=== PATIENT | male | born 1975 | race Caucasian/White ===

== ENCOUNTER 2017-06-14 15:30 | Emergency (ER) | payer SELFPAY ==
[2017-06-14 15:30] VITALS: BP 160/91; PULSE 84; RESP 20; TEMP 36.8; O2SAT 99; BMI 27.3
--- NOTE | 2017-06-14 15:38 | XR_ITS ---
XR chest 2V COMPARISON: PA and lateral chest 03/08/2012 HISTORY: Chest pain TECHNIQUE: PA and lateral chest FINDINGS: The lung plasencia are fairly well-expanded and appear clear of infiltrate. There is borderline cardio megaly without failure. Is no pleural fluid. IMPRESSION: Nonacute chest findings
[2017-06-14 15:49] LABS: Basophils % 0.4 % (0.1-2.0); Eosinophils # 0.1 K/mm3 (0.0-0.4); Eosinophils % 1.5 % (0.1-12.0); Hematocrit 49.5 % (42.0-52.0); Hemoglobin 16.6 g/dL (14.1-18.0); Lymphocytes # 1.6 K/mm3 (0.7-4.5); Lymphocytes % 22.2 K/mm3 (10-50); Mean Corpuscular HGB Conc 33.5 g/dL (31.8-35.4); Mean Corpuscular Hemoglobin 28.9 pg (27.0-31.2); Mean Corpuscular Volume 86.3 fl (80-94); Monocytes # 0.4 K/mm3 (0.1-1.0); Monocytes % 5.8 % (1.7-9.3); Neutrophils # 5.1 K/mm3 (1.8-7.8); Neutrophils % 70.1 % (37.0-80.0); Platelet Count 297 K/mm3 (142-424); Red Blood Count 5.73 M/mm3 (4.60-6.20); Red Cell Distribution Width 12.9 % (11.5-17.5); White Blood Count 7.2 K/mm3 (4.8-10.8)
--- NOTE | 2017-06-14 16:18 | HMH.EDCP ---
ED Disposition Clinical Impression: Chest pain Qualifiers: Chest pain type: other chest pain Qualified Code(s): R07.89 - Other chest pain Disposition: Home, Self-Care Condition on Discharge: Good Instructions: DI for Atypical Chest Pain Additional Instructions: Please follow-up with Dr. Fred Granado within the next 2 days for additional outpatient workup to include a stress test and an echocardiogram. Please document your resting blood pressure readings at home, and take those readings to the [facility]. Decrease the amount of sodium and fat in your diet. Referrals: Syd Granado MD [Staff Physician] - Time of Disposition: 17:24 - Critical Care Critical Care Time: No Attestation: On 06/14/17, the high probability of a clinically significant, sudden or life threatening deterioration of the following system(s) required my full and direct attention, intervention and personal management. The time I documented below is in addition to time spent performing reported procedures but includes the following listed in this critical care notation. Medical Decision Making - Medical Records Medical records reviewed: Yes: I reviewed the patient's medical records. - Pavan Inquiry Pt receiving controlled substance: No Vital Signs: 06/14/17 15:30 06/14/17 17:38 Temperature 98.2 F 98.0 F Temperature Source Oral Oral Pulse Rate 71 Pulse Rate [Right Brachial] 84 Respiratory Rate 20 18 Blood Pressure 161/102 Blood Pressure [Right Arm] 160/91 Blood Pressure Mean [Right Arm] 114 Blood Pressure Source Automatic Cuff Blood Pressure Source [Right Arm] Automatic Cuff Blood Pressure Position Sitting Blood Pressure Position [Right Arm] Supine 02 Sat by Pulse Oximetry 99 Oxygen Delivery Method Room Air Room Air - Lab Data Lab results reviewed: Yes: I reviewed the patient's lab results. Lab Results 06/14/17 15:35: WBC 7.2, RBC 5.73, Hgb 16.6, Hct 49.5, MCV 86.3, MCH 28.9, MCHC 33.5, RDW 12.9, Plt Count 297, MPV 8.0, Neut % (Auto) 70.1, Lymph % (Auto) 22.2, [place] % (Auto) 5.8, Eos % (Auto) 1.5, Baso % (Auto) 0.4, Neut # (Auto) 5.1, Lymph # (Auto) 1.6, [place] # (Auto) 0.4, Eos # (Auto) 0.1, Baso # (Auto) 0.0 06/14/17 15:35: Sodium 140, Potassium 3.5, Chloride 102, Carbon Dioxide 29, Anion Gap 12.5, BUN 8, Creatinine 0.96, Estimated Creat Clear 117, Estimated GFR 86, Est GFR ( Amer) 104, Glucose 106, Calcium 8.8, Total Bilirubin 0.4, AST 9 L, ALT 23, Alkaline Phosphatase 86, Total Creatine Kinase 136, CK-MB (CK-2) 0.8, CK-MB (CK-2) Rel Index 0.6, Troponin I < 0.02, Total Protein 8.2, Albumin 4.1, Globulin 4.1 H, Albumin/Globulin Ratio 1.0 L Result diagrams: 06/14/17 15:35 06/14/17 15:35 Orders (Tests/Meds): ED MEDICATIONS Discontinued Medications Generic Name Dose Route Start Last Admin Trade Name Freq PRN Reason Stop Dose Admin Aspirin 324 mg 06/14/17 15:40 06/14/17 15:42 Aspirin 81mg Chewable Tablet PO 06/14/17 15:41 324 mg ONCE ONE Administration ORDERS Category Date Time Status ECG Request by /Margie Stat Y 06/14/17 15:38 Ordered - Radiology Data #1 Image(s): Chest Image Reviewed: Yes I reviewed the patient's radiology results, Yes I reviewed the patient's radiology image, Yes I have reviewed radiologist's interpretation Preliminary Findings: Normal/NAD - ECG Data Tracing #1 I reviewed this ECG and interpreted as documented below: ECG normal with no acute: arrhythmias, ischemia, conduction abnormalities, chamber hypertrophy Chest Pain HPI - General Chief Complaint: Chest Pain Stated Complaint: CHEST PAIN Time Seen by Provider: 06/14/17 15:45 Mode of Arrival: Family Vehicle Source of Information: Patient Limitations: No Limitations Description of Symptoms (Recalled from ER Triage Doc. by RN): C/O MID CHEST PAIN WITH RADIATION TO LEFT SIDE OFF AND ON FOR COUPLE OF WEEKS BUT CONSTANT IN NATURE TODAY. UNABLE TO LIFT LEFT ARM ABOVE HEAD WITHOUT PAIN.
[2017-06-14 16:25] LABS: Alanine Aminotransferase 23 U/L (12-78); Albumin Level 4.1 gm/dL (3.4-5.0); Alkaline Phosphatase 86 U/L (46-116); Anion Gap 12.5 mEq/L (5-15); Aspartate Amino Transferase 9 U/L (15-37); Bilirubin,Total 0.4 mg/dL (0.2-1.0); Blood Urea Nitrogen 8 mg/dL (7-18); CKMB Relative Index 0.6 U/L (0-4.0); Calcium 8.8 mg/dL (8.5-10.1); Carbon Dioxide 29 mmol/L (21.0-32.0); Chloride 102 mmol/L (98-107); Creatine Kinase 136 U/L (39-308); Creatine Kinase MB 0.8 mg/ml (0.0-3.6); Creatinine Clearance Estimated 117 mL/min (0-300); Creatinine,Serum 0.96 mg/dL (0.70-1.30); Estimated Glomerular Filt Rate 86 ml/min (>60); GFR (African American) 104 ML/MIN (>60); Globulin 4.1 gm/dl (1.3-3.2); Glucose 106 mg/dL (74-106); Potassium 3.5 mmoL/L (3.5-5.1); Sodium 140 mmol/L (136-145); Total Protein,Serum 8.2 gm/dL (6.4-8.2); Troponin I < 0.02 ng/ml (0.00-0.06)
[2017-06-14 17:38] VITALS: BP 161/102; PULSE 71; RESP 18; TEMP 36.7; O2SAT 100
== END 2017-06-14 17:38 | disposition home or self-care (01) ==
PROVIDERS: Emergency Provider Emergency Medicine
DX: R07.89 Other chest pain (principal); Z88.0 Allergy status to penicillin
CPT/HCPCS: 71046; 80053; 82550; 82553; 84484; 85025; 93005; 99283

== ENCOUNTER 2020-06-04 19:42 | Emergency (ER) | payer BC, SELFPAY ==
[2020-06-04 19:52] VITALS: BP 206/118; PULSE 122; RESP 22; TEMP 37.7; O2SAT 96; BMI 32.8
--- NOTE | 2020-06-04 19:55 | ECG_ITS ---
APPROVED REPORT Exam: Resting ECG HR:115 bpm ECG Measurements Heart Rate 115 AXES FL 190 P 52 QRSd 96 QRS 44 QT 304 T 30 QTc 420 Conclusion Sinus tachycardia Otherwise normal ECG Electronically signed by : Jose L Oneal, 06/05/2020 07:02:04
--- NOTE | 2020-06-04 20:06 | XR_ITS ---
PROCEDURE: XR CHEST 2V CLINICAL HISTORY: SOA Shortness of air COMPARISON: CR CXR2V XR chest 2V from 06/14/2017 FINDINGS: The cardiomediastinal silhouette and pulmonary vascularity are within normal limits. The lungs are clear without infiltrates, suspicious nodules, or pleural effusions. Limited inspiration. Slightly elevated right hemidiaphragm. Minimal bibasilar. Old ununited fracture of the left humeral neck IMPRESSION: Low lung volumes with mild bibasilar atelectasis. Dictated by: Henri Alexandra MD 06/05/2020 05:32 Henri Alexandra MD in [facility] 06/05/2020 05:32
--- NOTE | 2020-06-04 20:16 | HMH.EDSOB ---
ED Disposition Clinical Impression: Febrile illness, acute, SIRS (systemic inflammatory response syndrome) Disposition: Home, Self-Care Condition on Discharge: Good Instructions: DI for Shortness of Breath Additional Instructions: fluids and use meds and see pcp for follow up Prescriptions: levoFLOXacin [Levaquin 500mg tab] 500 mg PO DAILY #7 tab Transmission Status: Pending to [facility] #[id number] Referrals: PCP,No [Primary Care Provider] - - Critical Care Critical Care Time: No Attestation: On 06/04/20, the high probability of a clinically significant, sudden or life threatening deterioration of the following system(s) required my full and direct attention, intervention and personal management. The time I documented below is in addition to time spent performing reported procedures but includes the following listed in this critical care notation. Medical Decision Making - Medical Records Medical records reviewed: Yes: I reviewed the patient's medical records. - Pavan Inquiry Pt receiving controlled substance: No Vital Signs: 06/04/20 19:52 06/04/20 22:18 Temperature 99.9 F H 99.4 F Temperature Source Oral Oral Pulse Rate [Right] 122 H 99 H Respiratory Rate 22 16 Blood Pressure [Right Arm] 206/118 H 148/99 H Blood Pressure Mean [Right Arm] 147 115 Blood Pressure Source [Right Arm] Automatic Cuff Blood Pressure Position [Right Arm] Supine 02 Sat by Pulse Oximetry 96 99 Oxygen Delivery Method Room Air Room Air - Lab Data Lab results reviewed: Yes: I reviewed the patient's lab results. Lab Results 06/04/20 20:05: WBC 10.8, RBC 5.63, Hgb 16.2, Hct 49.2, MCV 87.4, MCH 28.8, MCHC 33.0, RDW 13.3, Plt Count 228, MPV 7.5, Neut % (Auto) 93.3 H, Lymph % (Auto) 2.5 L, [place] % (Auto) 3.4, Eos % (Auto) 0.7, Baso % (Auto) 0.2, Neut # (Auto) 10.1 H, Lymph # (Auto) 0.3 L, [place] # (Auto) 0.4, Eos # (Auto) 0.1, Baso # (Auto) 0.0, Total Counted 100, Neutrophils % (Manual) 91 H, Lymphocytes % (Manual) 4 L, Monocytes % (Manual) 5, Platelet Estimate Normal, RBC Morphology Normal, ESR 8 06/04/20 20:05: Sodium 137, Potassium 3.8, Chloride 101, Carbon Dioxide 27, Anion Gap 12.8, BUN 14, Creatinine 0.90, Estimated Creat Clear 141, Estimated GFR 92, Est GFR ( Amer) 111, Glucose 147 H, Calcium 9.4, Total Bilirubin 1.0, AST 25, ALT 26, Alkaline Phosphatase 106, C-Reactive Protein 50.5 H, Total Protein 8.8 H, Albumin 4.7, Globulin 4.1 H, Albumin/Globulin Ratio 1.1 06/04/20 20:05: Lactate 1.4 06/04/20 20:05: SARS-CoV-2 IgG Ab (Rapid) Negative, SARS-CoV-2 IgM Ab (Rapid) Negative 06/04/20 20:05: Procalcitonin 0.570 06/04/20 20:20: Chlamy pneumoniae PCR Not detected, Adenovirus (PCR) Not detected, B. pertussis DNA (PCR) Not detected, Coronavirus OC43 (PCR) Not detected, Coronavirus HKU1 (PCR) Not detected, Coronavirus 229E (PCR) Not detected, SARS-CoV-2 (PCR) Not detected, Coronavirus NL63 (PCR) Not detected, Human Metapneumovir PCR Not detected, Influenza A (H1) PCR Not detected, Influ A (H1N1/09) PCR Not detected, Influenza A (H3) PCR Not detected, Influenza Type A (PCR) Not detected, Influenza Type B (PCR) Not detected, M. pneumoniae (PCR) Not detected, Parainfluenza 1 (PCR) Not detected, Parainfluenza 2 (PCR) Not detected, Parainfluenza 3 (PCR) Not detected, Parainfluenza 4 (PCR) Not detected, RSV (PCR) Not detected, Entero/Rhino (PCR) Not detected Result diagrams: 06/04/20 20:05 06/04/20 20:05 Orders (Tests/Meds): ED MEDICATIONS Generic Name Dose Route Start Last Admin Trade Name Freq PRN Reason Stop Dose Admin Sodium Chloride 1,000 mls @ 999 mls/hr 06/04/20 20:15 06/04/20 20:09 Sod Chlor 0.9% 1000ml Bag IV 06/04/20 21:15 999 mls/hr .Q1H1M LIZ Administration Ceftriaxone Sodium 1 gm/ 50 mls @ 100 mls/hr 06/04/20 22:30 06/04/20 22:29 Sodium Chloride IV 06/18/20 22:29 100 mls/hr Q24H LIZ Administration Protocol Discontinued Medications Generic Name Dose Route Start Last Admin T
--- NOTE | 2020-06-04 20:17 | CT_ITS ---
PROCEDURE: CT ANGIO CHEST CLINCIAL INDICATION: SOA pain w/ inspiration Shortness of breath and chest pain COMPARISON: No exams were available for comparison TECHNIQUE: IV Contrast: 70ML Isovue 370 Axial images obtained with sagittal and coronal reformats. All CT scans at the facility use one or more dose reduction, viz: automated exposure control, ma/kV adjustment per patient size (including targeted exams where dose is matched to indication, i.e. head), or iterative reconstruction technique. FINDINGS: HEART AND MEDIASTINAL STRUCTURES: No evidence of pulmonary embolus, aortic aneurysm, or aortic dissection. LUNGS AND PLEURAL SPACES: Minimal atelectatic change in the lingula. Calcified granuloma right lower lobe. Calcified nodes in the right hilum. BONY STRUCTURES: No acute bony abnormalities apparent. UPPER ABDOMEN: Borderline splenomegaly ADDITIONAL FINDINGS: No other significant abnormalities. IMPRESSION: No acute finding Dictated by: Henri Alexandra MD 06/05/2020 06:35 Henri Alexandra MD in [place] 06/05/2020 06:35
[2020-06-04 20:18] LABS: Chloride 101 mmol/L (98-107)
[2020-06-04 20:19] LABS: Potassium 3.8 mmoL/L (3.5-5.1); Sodium 137 mmol/L (136-145)
[2020-06-04 20:20] LABS: Basophils % 0.2 % (0.1-2.0); Eosinophils # 0.1 K/mm3 (0.0-0.4); Eosinophils % 0.7 % (0.1-12.0); Hematocrit 49.2 % (42.0-52.0); Hemoglobin 16.2 g/dL (14.1-18.0); Lymphocytes # 0.3 K/mm3 (0.7-4.5); Lymphocytes % 2.5 % (10-50); Mean Corpuscular Hemoglobin 28.8 pg (27.0-31.2); Mean Corpuscular Volume 87.4 fl (80-94); Mean Platelet Volume 7.5 fl (7.4-10.4); Monocytes # 0.4 K/mm3 (0.1-1.0); Monocytes % 3.4 % (1.7-9.3); Neutrophils # 10.1 K/mm3 (1.8-7.8); Neutrophils % 93.3 % (37.0-80.0); Platelet Count 228 K/mm3 (142-424); Red Blood Count 5.63 M/mm3 (4.60-6.20); Red Cell Distribution Width 13.3 % (11.5-17.5); White Blood Count 10.8 K/mm3 (4.8-10.8)
[2020-06-04 20:21] LABS: Alanine Aminotransferase 26 U/L (12-78); Anion Gap 12.8 mEq/L (5-15); Aspartate Amino Transferase 25 U/L (17-59); Blood Urea Nitrogen 14 mg/dl (9-20); Carbon Dioxide 27 mmol/L (22.0-30.0); Creatinine Clearance Estimated 141 mL/min (50-200); Estimated Glomerular Filt Rate 92 ml/min (>60); GFR (African American) 111 ML/MIN (>60)
[2020-06-04 20:22] LABS: Albumin Level 4.7 g/dl (3.5-5.0); Albumin/Globulin Ratio 1.1 (1.1-1.8); Alkaline Phosphatase 106 U/L (38-126); Calcium 9.4 mg/dl (8.4-10.2); Globulin 4.1 g/dL (1.3-3.2); Glucose 147 mg/dl (74-100); MANUAL DIFFERENTIAL MANUAL DIFFERENTIAL (MANUAL DIFF); Total Protein,Serum 8.8 g/dl (6.3-8.2)
[2020-06-04 20:24] LABS: Adenovirus,PCR Not Detected (NotDetected); Coronavirus 229E Not Detected (NotDetected); Coronavirus NL63 Not Detected (NotDetected); Coronavirus OC43 Not Detected (NotDetected); Coronovirus HKU1,PCR Not Detected (NotDetected); Human Metapneumovirus Not Detected (NotDetected); Influenza A, PCR Not Detected (NotDetected); Influenza AH1, 2009 Not Detected (NotDetected); Influenza AH1, PCR Not Detected (NotDetected); Influenza AH3,PCR Not Detected (NotDetected); Influenza B, PCR Not Detected (NotDetected); Parainfluenza 1, PCR Not Detected (NotDetected); Parainfluenza 2, PCR Not Detected (NotDetected); Rhinovirus/Enterovirus Not Detected (NotDetected)
[2020-06-04 20:25] LABS: Bordetella Pertussis Not Detected (NotDetected); Chlamydophila Pneumoniae, PCR Not Detected (NotDetected); Coronavirus 19, PCR Not Detected (NotDetected); Mycoplasma Pneumoniae, PCR Not Detected (NotDetected); Parainfluenza 3, PCR Not Detected (NotDetected); Parainfluenza 4, PCR Not Detected (NotDetected); Respiratory Syncytial Virus Not Detected (NotDetected)
[2020-06-04 20:26] LABS: Lactic Acid 1.4 mmol/L (0.7-2.1)
[2020-06-04 20:27] LABS: C-Reactive Protein 50.5 mg/L (0-4)
[2020-06-04 20:28] LABS: Lymphocytes % 4 % (10-50); Monocytes % 5 % (2-9); Neutrophils % 91 % (42-76); Platelet Estimate Normal; RBC Morphology Normal; Total Cells Counted 100
[2020-06-04 20:56] LABS: Coronavirus 19 IgG Antibody Negative (Negative); Coronavirus 19 IgM Antibody Negative (Negative)
[2020-06-04 21:13] LABS: Erythrocyte Sedimentation Rate 8 mm/hr (0-15)
[2020-06-04 22:18] VITALS: BP 148/99; PULSE 99; RESP 16; TEMP 37.4; O2SAT 99
[2020-06-04 23:38] VITALS: BP 144/93; PULSE 102; RESP 16; TEMP 37.4; O2SAT 95
== END 2020-06-04 23:41 | disposition home or self-care (01) ==
PROVIDERS: Emergency Medicine; Emergency Provider Emergency Medicine
DX: Z20.822 Contact with and (suspected) exposure to COVID-19 (principal); R50.9 Fever, unspecified; Z88.0 Allergy status to penicillin; R65.10 Systemic inflammatory response syndrome (SIRS) of non-infectious origin without acute organ dysfunction
CPT/HCPCS: 71046; 71275; 80053; 83605; 84145; 85007; 85025; 85651; 86140; 86328; 87040; 87581; 87633; 87798; 93005; 96365; 96367; 96375; 99283; J2405; Q9967

== ENCOUNTER → 2020-12-16 17:15 | Outpatient (CLI) | payer SELFPAY | PROVIDERS: Visit Provider Nurse Practitioner | DX: Z20.822 Contact with and (suspected) exposure to COVID-19 (principal) | CPT/HCPCS: C9803; U0003; U0005 ==

== ENCOUNTER → 2021-02-25 17:25 | Outpatient (CLI) | payer OTHER, SELFPAY ==
[2021-02-25 18:41] LABS: Basophils % 0.6 % (0.1-2.0); Eosinophils # 0.1 K/mm3 (0.0-0.4); Eosinophils % 1.3 % (0.1-12.0); Hematocrit 46.8 % (42.0-52.0); Hemoglobin 16.4 g/dL (14.1-18.0); Lymphocytes # 1.4 K/mm3 (0.7-4.5); Lymphocytes % 22.5 % (10-50); Mean Corpuscular Hemoglobin 29.3 pg (27.0-31.2); Mean Corpuscular Volume 83.8 fl (80-94); Mean Platelet Volume 8.3 fl (7.4-10.4); Monocytes # 0.3 K/mm3 (0.1-1.0); Monocytes % 5.6 % (1.7-9.3); Neutrophils # 4.3 K/mm3 (1.8-7.8); Platelet Count 324 K/mm3 (142-424); Red Blood Count 5.58 M/mm3 (4.60-6.20); Red Cell Distribution Width 13.2 % (11.5-17.5); White Blood Count 6.1 K/mm3 (4.8-10.8)
[2021-02-25 19:23] LABS: Chloride 101 mmol/L (98-107)
[2021-02-25 19:24] LABS: Potassium 4.1 mmoL/L (3.5-5.1); Sodium 140 mmol/L (136-145)
[2021-02-25 19:26] LABS: Alanine Aminotransferase 10 U/L (12-78); Anion Gap 15.1 mEq/L (5-15); Aspartate Amino Transferase 23 U/L (17-59); Bilirubin,Total 0.3 mg/dl (0.2-1.3); Blood Urea Nitrogen 14 mg/dl (9-20); Carbon Dioxide 28 mmol/L (22.0-30.0); Estimated Glomerular Filt Rate 91 ml/min (>60); GFR (African American) 110 ML/MIN (>60)
[2021-02-25 19:27] LABS: Albumin Level 4.7 g/dl (3.5-5.0); Albumin/Globulin Ratio 1.6 (1.1-1.8); Alkaline Phosphatase 88 U/L (38-126); Calcium 10.1 mg/dl (8.4-10.2); Chol/HDL Ratio 5.5 (1-3.5); Cholesterol 203 mg/dl (140-200); Globulin 2.9 g/dL (1.3-3.2); Glucose 111 mg/dl (74-100); HDL Cholesterol 37 mg/dl (40-60); Total Protein,Serum 7.6 g/dl (6.3-8.2); Triglycerides 184 mg/dl (30-150); VLDL Cholesterol 37 mg/dL (0-40)
[2021-02-25 19:38] LABS: Direct LDL Cholesterol 136.11 mg/dL (100-129)
[2021-02-25 19:43] LABS: 25-OH Vitamin D, Total 39.8 ng/mL (30-100)
[2021-02-25 19:58] LABS: Thyroid Stimulating Hormone 1.84 uIU/mL (0.465-4.68)
[2021-02-25 21:10] LABS: Vitamin B12 383 pg/mL (239-931)
[2021-02-27 17:07] LABS: Hemoglobin A1C 5.2 % (4.0-6.0)
== END ==
PROVIDERS: Internal Medicine Adolescent Medicine; Visit Provider Nurse Practitioner Family
DX: Z00.00 Encounter for general adult medical examination without abnormal findings (principal); I10 Essential (primary) hypertension; R53.83 Other fatigue; R73.9 Hyperglycemia, unspecified
CPT/HCPCS: 36415; 80053; 80061; 82306; 82607; 83036; 84443; 85025

== ENCOUNTER → 2021-07-26 09:42 | Outpatient (CLI) | payer OTHER, SELFPAY ==
[2021-07-26 11:19] LABS: Alanine Aminotransferase 16 U/L (12-78); Albumin Level 4.4 g/dl (3.5-5.0); Albumin/Globulin Ratio 1.6 (1.1-1.8); Alkaline Phosphatase 77 U/L (38-126); Anion Gap 11.1 mEq/L (5-15); Aspartate Amino Transferase 18 U/L (17-59); Bilirubin,Total 0.4 mg/dl (0.2-1.3); Blood Urea Nitrogen 13 mg/dl (9-20); Calcium 9.6 mg/dl (8.4-10.2); Carbon Dioxide 31 mmol/L (22.0-30.0); Chloride 101 mmol/L (98-107); Chol/HDL Ratio 4.9 (1-3.5); Cholesterol 188 mg/dl (140-200); Estimated Glomerular Filt Rate 91 ml/min (>60); GFR (African American) 110 ML/MIN (>60); Globulin 2.7 g/dL (1.3-3.2); Glucose 89 mg/dl (74-100); HDL Cholesterol 38 mg/dl (40-60); Potassium 4.1 mmoL/L (3.5-5.1); Sodium 139 mmol/L (136-145); Total Protein,Serum 7.1 g/dl (6.3-8.2); Triglycerides 120 mg/dl (30-150); VLDL Cholesterol 24 mg/dL (0-40)
[2021-07-26 11:30] LABS: Direct LDL Cholesterol 114.42 mg/dL (100-129)
== END ==
PROVIDERS: Visit Provider Nurse Practitioner Family
DX: Z00.00 Encounter for general adult medical examination without abnormal findings (principal); I10 Essential (primary) hypertension
CPT/HCPCS: 36415; 80053; 80061

== ENCOUNTER 2022-09-17 16:38 | Emergency (ER) | payer OTHER, SELFPAY ==
[2022-09-17 16:45] VITALS: BP 170/117; PULSE 72; RESP 19; TEMP 36.8; O2SAT 99; BMI 28.4
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
[2022-09-17 17:57] VITALS: BP 170/117; PULSE 72; RESP 19; TEMP 36.8; O2SAT 99
== END 2022-09-17 17:58 | disposition home or self-care (01) ==
PROVIDERS: Emergency Provider Nurse Practitioner Family; PCP Nurse Practitioner Family
DX: L03.115 Cellulitis of right lower limb (principal); S80.11XA Contusion of right lower leg, initial encounter; W20.8XXA Other cause of strike by thrown, projected or falling object, initial encounter
CPT/HCPCS: 73590; 99204; 99212; G0463

== ENCOUNTER 2024-09-03 18:26 | Observation (INO) | payer BC, SELFPAY ==
[2024-09-03] VITALS (34 sets, daily range): BP systolic 162–246; BP diastolic 93–141; PULSE 60–122; RESP 0–27; TEMP 36.6–37; O2SAT 93–100; BMI 29.6; BMI 30.4
--- NOTE | 2024-09-03 18:41 | PC.NURSE ---
Manual BP 240/120 at this time.
--- NOTE | 2024-09-03 18:42 | CT_ITS ---
PROCEDURE INFORMATION: Exam: CT Head Without Contrast Exam date and time: 09/03/2024 7:05 PM Age: 48 years old Clinical indication: Other: Systolic 250 headache TECHNIQUE: Imaging protocol: Computed tomography of the head without contrast. Radiation optimization: All CT scans at this facility use at least one of these dose optimization techniques: automated exposure control; mA and/or kV adjustment per patient size (includes targeted exams where dose is matched to clinical indication); or iterative reconstruction. COMPARISON: CT - [facility] CT cervical spine wo con 10/02/2017 12:38 PM FINDINGS: Brain: No hemorrhage. Unremarkable white matter. No mass effect. Cerebral ventricles: No ventriculomegaly. Paranasal sinuses: Visualized sinuses are unremarkable. No fluid levels. Mastoid air cells: Visualized mastoid air cells are well aerated. Bones: Unremarkable. No acute fracture. Soft tissues: Unremarkable. IMPRESSION: No acute intracranial abnormality.
--- NOTE | 2024-09-03 18:44 | ED_ITS ---
Discharge Plan Disposition Patient Disposition: Admitted Clinical Impressions Clinical Impression: Hypertensive emergency, Intermittent chest pain Discharge ED Provider: Gideon Brito General Adult HPI General Chief complaint: Recheck/Abnormal Lab/Rx Stated complaint: High blood pressure,headache Time Seen by Provider: 09/03/24 18:32 Mode of Arrival: Ambulatory Source of Information: Patient and Significant Other Description of Symptoms (Recalled from ER Triage Doc. by RN): PT presents to the ED for evaluation of HTN. PT states he checked his BP at [facility] 216/142. PT is non compliant with medication. PT stated he has had a headache and chest pains. History of Present Illness HPI narrative: Patient is a 48-year-old male with past medical history of hypertension that he is not taking his medications as prescribed who presents emergency department for evaluation of elevated blood pressure. He took his blood pressure at [facility] where it was elevated with systolic greater than 200. He has a bifrontal headache. No trauma. He has had intermittent chest pain throughout the course of the week but does not have any chest pain currently. No shortness of breath reported. No other acute complaints at this time. Please note that above description of symptoms, in this electronic medical record under categorization of recalled from ER triage doctor by RN are reflective of an initial nursing assessment, however, is not reflective of my full history and physical exam that was personally taken and clarified. Consequentially, this preceding description of symptoms, which may include the patient's categorized chief complaint in the EMR, do not reflect my personal clinical impression, and the ultimate description of history of present illness and patient stated complaints should be deferred to this section of the note. Unless stated otherwise or congruent with this section of the note, additional signs, symptoms, or incongruence should be interpreted as inaccurate with my clinical impression. Related Data Home Medications ?Medication ?Instructions ?Recorded ?Confirmed losartan 25 mg tablet 25 mg PO DAILY Hypertension 09/17/22 09/17/22 Previous Rx's ?Medication ?Instructions ?Recorded cephalexin 500 mg capsule 500 mg PO QID #40 caps 09/17 mupirocin 2 % topical ointment 1 applic topical TID 7 days #15 09/17/22 grams Allergies Allergy/AdvReac Type Severity Reaction Status Date / Time amoxicillin Allergy Verified 09/27/17 09:13 Penicillins Allergy Verified 09/27/17 09:13 [facility] Disclaimer: The information contained in this section may have been updated after the patient was seen, as this information can be updated by other users. Medical History Hypertension Surgical History History of shoulder surgery Social History Smoking Status: Never smoker alcohol intake: never current occupational status: employed Travel in the last 8 weeks?: None caffeine: Yes Have you lived/traveled outside US in past 30 days?: No Contact w/someone who lives/traveled outside US past 30 days?: No Exposure to someone with infectious disease in past 14 days?: No Do you have a fever (greater than 100.4 F or 38 C)?: No Have you tested positive for COVID-19?: No Exposed to someone with COVID-19 in past 14 days?: No Do you have a sore throat?: No Do you have a cough?: No Do you have any weakness?: No Do you have any diarrhea?: No Are you experiencing any unusual bleeding?: No Do you have any muscle aches/pain?: No Do you have any abdominal pain?: No Are you experiencing loss of taste or smell?: No Other Medical History Have you received the Flu Vaccine for this season: No Have you received the Pneumonia Vaccine: No ROS Obtained: Yes Systems reviewed as appropriate & no additional complaints except as documented Physical Exam General General appearance: alert and in no apparent distress Head Head exam: atraumatic and normocephalic Eye Eye exam: Present PERRL and EOMI ENT ENT exam: Present mucous membranes moist Neck Neck exam: Present normal inspection Chest Chest inspection: Present normal inspection and symmetric chest wall rise Respiratory Respiratory exam: Present normal lung sounds bilaterally; Absent respiratory distress Cardiovascular Cardiovascular exam: Present normal rhythm and tachycardia Abdominal Exam Abdominal exam: Present soft; Absent tenderness Extremities Exam Extremities exam: Present normal inspection Neurological Exam Neurological exam: Present alert and CN II-XII intact; Absent motor sensory deficit Psychiatric Psychiatric exam: Present normal affect Skin Skin exam: Present warm and dry Medical Decision Making Medical Records Screening: Per USPSTF and CDC recommendations, given the prevalence of disease in our region, it is our hospital?s policy to screen for HIV and viral Hepatitis for all patients aged 18 and over and those with ongoing risk factors. [place] Inquiry Pt receiving controlled substance: No Vital Signs: 09/03/24 18:29 09/03/24 18:35 09/03/24 19:00 Temperature 98.2 F Temperature Source Oral Pulse Rate 106 H Pulse Rate [Right] 100 H 115 H Respiratory Rate 16 14 Blood Pressure 195/116 H Blood Pressure [Right Arm] 246/141 H 207/134 H Blood Pressure Mean Blood Pressure Mean [Right Arm] 176 158 Blood Pressure Source [Right Arm] Automatic Cuff Blood Pressure Position 02 Sat by Pulse Oximetry 100 96 95 Oxygen Delivery Method Room Air Room Air 09/03/24 19:09 09/03/24 19:13 09/03/24 19:15 Temperature Temperature Source Pulse Rate 108 H 89 111 H Pulse Rate [Right] Respiratory Rate 0 L Blood Pressure 228/132 H 207/134 H 204/123 H Blood Pressure [Right Arm] Blood Pressure Mean Blood Pressure Mean [Right Arm] Blood Pressure Source [Right Arm] Blood Pressure Position 02 Sat by Pulse Oximetry 96 96 97 Oxygen Delivery Method 09/03/24 19:20 09/03/24 19:27 09/03/24 19:27 Temperature Temperature Source Pulse Rate 122 H 120 H 118 H Pulse Rate [Right] Respiratory Rate 16 Blood Pressure 214/135 H 199/115 H 199/115 H Blood Pressure [Right Arm] Blood Pressure Mean Blood Pressure Mean [Right Arm] Blood Pressure Source [Right Arm] Blood Pressure Position Sitting 02 Sat by Pulse Oximetry 96 95 95 Oxygen Delivery Method Room Air 09/03/24 19:30 09/03/24 19:35 09/03/24 19:40 Temperature Temperature Source Pulse Rate 114 H 60 Pulse Rate [Right] Respiratory Rate Blood Pressure 209/116 H 184/111 H 183/94 H Blood Pressure [Right Arm] Blood Pressure Mean 135 Blood Pressure Mean [Right Arm] Blood Pressure Source [Right Arm] Blood Pressure Position 02 Sat by Pulse Oximetry 95 95 Oxygen Delivery Method 09/03/24 19:45 09/03/24 19:50 09/03/24 19:51 Temperature Temperature Source Pulse Rate 115 H 112 H 115 H Pulse Rate [Right] Respiratory Rate 16 Blood Pressure 187/116 H 189/112 H 189/112 H Blood Pressure [Right Arm] Blood Pressure Mean Blood Pressure Mean [Right Arm] Blood Pressure Source [Right Arm] Blood Pressure Position Sitting 02 Sat by Pulse Oximetry 94 L 94 L 94 L Oxygen Delivery Method Room Air 09/03/24 19:55 09/03/24 20:00 09/03/24 20:05 Temperature Temperature Source Pulse Rate 114 H 114 H 110 H Pulse Rate [Right] Respiratory Rate Blood Pressure 179/111 H 186/114 H 186/114 H Blood Pressure [Right Arm] Blood Pressure Mean Blood Pressure Mean [Right Arm] Blood Pressure Source [Right Arm] Blood Pressure Position 02 Sat by Pulse Oximetry 93 L 94 L 94 L Oxygen Delivery Method 09/03/24 20:10 09/03/24 20:15 09/03/24 20:20 Temperature Temperature Source Pulse Rate 105 H Pulse Rate [Right] Respiratory Rate 23 Blood Pressure 184/110 H 197/121 H 185/118 H Blood Pressure [Right Arm] Blood Pressure Mean 140 Blood Pressure Mean [Right Arm] Blood Pressure Source [Right Arm] Blood Pressure Position 02 Sat by Pulse Oximetry 94 L Oxygen Delivery Method 09/03/24 20:25 09/03/24 20:30 09/03/24 20:56 Temperature Temperature Source Pulse Rate 111 H 105 H 103 H Pulse Rate [Right] Respiratory Rate 27 H Blood Pressure 175/122 H 185/114 H 212/121 H Blood Pressure [Right Arm] Blood Pressure Mean Blood Pressure Mean [Right Arm] Blood Pressure Source [Right Arm] Blood Pressure Position 02 Sat by Pulse Oximetry 94 L 94 L 96 Oxygen Delivery Method 09/03/24 21:00 09/03/24 21:05 Temperature Temperature Source Pulse Rate 101 H 103 H Pulse Rate [Right] Respiratory Rate Blood Pressure 198/117 H 177/112 H Blood Pressure [Right Arm] Blood Pressure Mean Blood Pressure Mean [Right Arm] Blood Pressure Source [Right Arm] Blood Pressure Position 02 Sat by Pulse Oximetry 95 95 Oxygen Delivery Method Lab Data Lab Results 09/03/24 18:46: WBC 8.8, RBC 5.62, Hgb 16.6, Hct 46.7, MCV 83.1, MCH 29.5, MCHC 35.5 H, RDW 13.2, Plt Count 320, MPV 10.0, Neut % (Auto) 68.2, Lymph % (Auto) 22.2, [place] % (Auto) 6.2, Eos % (Auto) 2.5, Baso % (Auto) 0.7, Neut # (Auto) 6.0, Lymph # (Auto) 1.9, [place] # (Auto) 0.5, Eos # (Auto) 0.2, Baso # (Auto) 0.1, D- Dimer 1.14 H, Sodium 138, Potassium 4.5, Chloride 104, Carbon Dioxide 25, Anion Gap 13.5, BUN 13, Creatinine 1.00, Estimated Creat Clear 113, Estimated GFR 80, Est GFR ( Amer) 97, Glucose 118 H, Calcium 9.0, Total Bilirubin 1.1, AST 37, ALT 28, Alkaline Phosphatase 77, Troponin I 0.02, Total Protein 8.4 H, Albumin 4.6, Globulin 3.8 H, Albumin/Globulin Ratio 1.2 09/03/24 19:33: Urine Color Yellow, Urine Appearance Clear, Urine pH 7.0, Ur Specific [place] 1.015, Urine Protein Negative, Urine Glucose (UA) Negative, Urine Ketones Negative, Urine Blood Negative, Urine Nitrate Negative, Urine Bilirubin Negative, Urine Urobilinogen 1.0, Ur Leukocyte Esterase Negative, Urine RBC None, Urine WBC None, Ur Squamous Epith Cells None, Urine Bacteria None 09/03/24 18:46 09/03/24 18:46 Orders (Tests/Meds): ED MEDICATIONS Generic Name Dose Route Start Last Admin Trade Name Freq PRN Reason Stop Dose Admin Nicardipine HCl 25 mg/ Sodium 250 mls @ 50 mls/hr 09/03/24 18:40 09/03/24 19:46 Chloride IV 10/03/24 18:39 5 mg/hr .Q5H LIZ 50 mls/hr Protocol Infusion 5 MG/HR Iopamidol 80 ml 09/03/24 20:50 09/03/24 20:51 Iopamidol-370 (76%);100ml Bottle IV 09/03/24 20:51 80 ml ONCE ONE Administration Irbesartan 75 mg 09/04/24 09:00 Irbesartan 75mg Tablet PO 10/04/24 08:59 ONCE LIZ Nifedipine 30 mg 09/04/24 09:00 Nifedipine Xl 30mg Tablet PO 10/04/24 08:59 DAILY LIZ Sodium Chloride 50 ml 09/03/24 20:50 09/03/24 20:51 0.9 % Sodium Chloride 50 Ml Vial IV 09/03/24 20:51 50 ml ONCE ONE Administration Sodium Chloride 10 ml 09/03/24 20:50 09/03/24 20:51 Sodium Chloride 0.9% 10ml Syr (Rad Only) IV 09/03/24 20:51 10 ml ONCE ONE Administration Discontinued Medications Generic Name Dose Route Start Last Admin Trade Name Freq PRN Reason Stop Dose Admin Acetaminophen 1,000 mg 09/03/24 18:42 09/03/24 19:19 Acetaminophen 1,000mg/100ml Vial IV 09/03/24 18:43 1,000 mg ONCE ONE Administration ORDERS Category Date Time Status CT angio abdomen pelvis Stat Cat Scan 09/03/24 20:[address] angio chest - dissection Stat Cat Scan 09/03/24 19:[address] head/brain wo con Stat Cat Scan 09/03/24 18:42 Completed Cardiology Consult [Consult to Cardiology] [CONS] Cons 09/03/24 20:23 Active Routine CBC w/Auto Diff [Complete Blood Count Auto Diff] AMLAB Lab 09/04/24 06:00 Ordered CBC w/Auto Diff [Complete Blood Count Auto Diff] AMLAB Lab 09/05/24 06:00 Ordered CBC w/Auto Diff [Complete Blood Count Auto Diff] AMLAB Lab 09/06/24 06:00 Ordered CBC w/Auto Diff [Complete Blood Count Auto Diff] Stat Lab 09/03/24 18:46 Completed CMP [Comprehensive Metabolic Panel] AMLAB Lab 09/04/24 06:00 Ordered CMP [Comprehensive Metabolic Panel] AMLAB Lab 09/05/24 06:00 Ordered CMP [Comprehensive Metabolic Panel] AMLAB Lab 09/06/24 06:00 Ordered CMP [Comprehensive Metabolic Panel] Stat Lab 09/03/24 18:46 Completed D-Dimer Stat Lab 09/03/24 18:46 Completed MAG [Magnesium] AMLAB Lab 09/04/24 06:00 Ordered PHOS [Phosphorous] AMLAB Lab 09/04/24 06:00 Ordered PHOS [Phosphorous] AMLAB Lab 09/05/24 06:00 Ordered PHOS [Phosphorous] AMLAB Lab 09/06/24 06:00 Ordered PT INR [Prothrombin Time INR] AMLAB Lab 09/04/24 06:00 Ordered Trop I [Troponin I] Stat Lab 09/03/24 18:46 Completed Troponin I Q3H Lab 09/03/24 21:45 Ordered Troponin I Q3H Lab 09/04/24 00:45 Ordered UA [Urinalysis and Microscopic] Stat Lab 09/03/24 19:33 Completed CA echo doppler complete Routine Y 09/03/24 20:21 Ordered ECG Data Tracing #1: Independently interpreted by me rate is 109, rhythm is regular, axis is normal, no ST elevation in anatomical contiguous leads, QTc 394. Medical Decision Narrative: In summary patient is a 48-year-old male past medical history described above presents emergency department for evaluation of hypertension. Patient has severe elevated hypertension upon arrival systolic 246, subsequent systolic 251. Patient has a bifrontal headache and a nonfocal neurologic exam. He has a history of chest pain strep the course of the week but does not have any currently. Given this Cardene drip will be initiated given severity of hypertension workup screening for secondary endorgan damage as well as intracranial hemorrhage will be conducted with hematologic labs EKG troponin noncontrasted CT scan of the head. Initial inventions include IV Tylenol. D- dimer will be obtained for low risk aortic dissection and pulmonary embolism given that he is not have any chest pain or shortness of breath currently however has mild tachycardia. Initial workup reviewed by me, hematologic labs are nonactionable except for elevated D-dimer for which CTA dissection protocol will be obtained to rule out PE and dissection given degree of hypertension. CT abdomen pelvis will be obtained to rule out renal artery stenosis. Case discussed with hospital medicine regarding management they will meet the patient to her service for continued evaluation at this time. Critical Care Critical Care Time Critical Care Time: Yes Attestation: On 09/03/24, the high probability of a clinically significant, sudden or life threatening deterioration of the following system(s) required my full and direct attention, intervention and personal management. The time I documented below is in addition to time spent performing reported procedures but includes the following listed in this critical care notation. Total Time Total Critical Care Time: 35
--- NOTE | 2024-09-03 18:44 | ECG_ITS ---
APPROVED REPORT Exam: Resting ECG HR:109 bpm ECG Measurements Heart Rate 109 AXES GA 182 P 56 QRSd 106 QRS 27 QT 330 T 50 QTc 394 Conclusion SINUS TACHYCARDIA WITH OCCASIONAL SUPRAVENTRICULAR PREMATURE COMPLEXES ABNORMAL RHYTHM ECG UNCONFIRMED REPORT Electronically signed by : JOE MOREL, 09/04/2024 06:41:13
[2024-09-03] MEDS: NICARDIPINE HCL 25 MG in 0.9 % SODIUM CHLORIDE 240 ML 50 MG IV ×2 (18:49→23:25)
[2024-09-03 18:54] LABS: Basophils # 0.1 K/mm3 (0-0.2); Basophils % 0.7 % (0.1-2.0); Eosinophils # 0.2 Kmm3 (0.0-0.4); Eosinophils % 2.5 % (0.1-12.0); Hematocrit 46.7 % (42.0-52.0); Hemoglobin 16.6 g/dL (14.1-18.0); Immature Granulocytes # 0.02 10^3uL; Immature Granulocytes % 0.2 %; Lymphocytes # 1.9 K/mm3 (0.7-4.5); Lymphocytes % 22.2 % (10-50); Mean Corpuscular HGB Conc 35.5 g/dL (31.8-35.4); Mean Corpuscular Hemoglobin 29.5 pg (27.0-31.2); Mean Corpuscular Volume 83.1 fl (80-94); Monocytes # 0.5 K/mm3 (0.1-1.0); Monocytes % 6.2 % (1.7-9.3); Neutrophils % 68.2 % (37.0-80.0); Nucleated Red Blood Cells # 0 10^3/uL; Nucleated Red Blood Cells % 0 %; Platelet Count 320 K/mm3 (142-424); Red Blood Count 5.62 M/mm3 (4.60-6.20); Red Cell Distribution Width 13.2 % (11.5-17.5); Red Cell Distribution Width-SD 39.7 fL; White Blood Count 8.8 K/mm3 (4.8-10.8)
[2024-09-03 19:07] LABS: Alanine Aminotransferase 28 U/L (12-78); Albumin Level 4.6 g/dl (3.5-5.0); Albumin/Globulin Ratio 1.2 (1.1-1.8); Alkaline Phosphatase 77 U/L (38-126); Anion Gap 13.5 mEq/L (5-15); Aspartate Amino Transferase 37 U/L (17-59); Bilirubin,Total 1.1 mg/dl (0.2-1.3); Blood Urea Nitrogen 13 mg/dl (9-20); Carbon Dioxide 25 mmol/L (22.0-30.0); Chloride 104 mmol/L (98-107); Creatinine Clearance Estimated 113 mL/min (50-200); Estimated Glomerular Filt Rate 80 ml/min (>60); GFR (African American) 97 ML/MIN (>60); Globulin 3.8 g/dL (1.3-3.2); Glucose 118 mg/dl (74-100); Potassium 4.5 mmoL/L (3.5-5.1); Sodium 138 mmol/L (136-145); Total Protein,Serum 8.4 g/dl (6.3-8.2)
[2024-09-03 19:11] LABS: D-Dimer 1.14 ug/mL (0.0-0.5)
[2024-09-03 19:19] LABS: Troponin I 0.02 ng/ml (0.00-0.034)
[2024-09-03] MEDS: ACETAMINOPHEN 1,000MG/100ML VIAL 1000 MG IV (19:19)
--- NOTE | 2024-09-03 19:20 | PC.NURSE ---
[facility] pharmacy staff Maurice contacted and asked about compatibility for Ofirmev and Cardene, reports that the 2 medications can go together.
--- NOTE | 2024-09-03 19:24 | PC.NURSE ---
pt requesting to use restroom, explained the safety risk of unhooking from his medication and ambulating, pt agreeable to use urinal. Family remains at the bedside.
--- NOTE | 2024-09-03 19:34 | CT_ITS ---
PROCEDURE INFORMATION: Exam: CTA Chest With Contrast Exam date and time: 09/03/2024 8:49 PM Age: 48 years old Clinical indication: Other: High BP; Additional info: HTN systolic 250 intermittent cp TECHNIQUE: Imaging protocol: Computed tomographic angiography of the chest with contrast. Exam focused on the arteries. 3D rendering (Not supervised by radiologist): MIP and/or 3D reconstructed images were created by the technologist. Radiation optimization: All CT scans at this facility use at least one of these dose optimization techniques: automated exposure control; mA and/or kV adjustment per patient size (includes targeted exams where dose is matched to clinical indication); or iterative reconstruction. Contrast material: ISOVUE; Contrast volume: 75 ml; Contrast route: INTRAVENOUS (IV); COMPARISON: CT ANGIO ABDOMEN PELVIS 09/03/2024 8:49 PM FINDINGS: Pulmonary arteries: No pulmonary emboli. Aorta: Unremarkable. No aortic aneurysm. No aortic dissection. Lungs: Right basilar calcified granuloma. No consolidation. No masses. Pleural spaces: Unremarkable. No pneumothorax. No pleural effusion. Heart: Unremarkable. No cardiomegaly. No pericardial effusion. Lymph nodes: Right hilar and mediastinal calcified lymph nodes. No enlarged lymph nodes. Bones/joints: Unremarkable. No acute fracture. Soft tissues: Unremarkable. IMPRESSION: No acute findings.
[2024-09-03 19:35] LABS: Microscopic, Urine URINE MICROSCOPIC (MICROSCOPIC)
[2024-09-03 19:36] LABS: Appearance,Urine CLEAR (Clear); Bilirubin,Urine Negative (Negative); Blood, Urine Negative (Negative); Color,Urine YELLOW (Yellow); Glucose,Urine (UA) Negative (Negative); Ketones,Urine Negative (Negative); Leukocyte Esterase,Urine Negative (Negative); Nitrate,Urine Negative (Negative); Protein,Urine Negative (Negative); Specific Gravity, Urine 1.015 (1.005-1.030)
--- NOTE | 2024-09-03 20:03 | P.HP_ITS ---
History of Present Illness *Admission Date: 09/03/24 *Reason for visit:: High blood pressure *History of present illness: 40-year-old male presents to the emergency department for evaluation of high blood pressure. Patient states that he was at [facility] and checked his blood pressure and was greater than 100. Symptoms include a bifrontal headache that has been present for multiple days he is denying chest pain currently, however he has been having intermittent chest pain throughout the week. He has a history of hypertension but is noncompliant with his medication regimen. In the emergency department blood pressure was greater than 200 he was started on nicardipine with substantial improvement of blood pressure. symtpoms improved ED EKG [address] depressions in lateral precordial leads. D-dimer was obtained which was elevated, chest abdomen pelvis CTA was ordered which demonstrated no acute dissection,. CTA abdomen pelvis no renal artery stenosis History independently obtained. Diagnostic studies and laboratory independently interpreted. Discussed case with ER physician. Reviewed prior records. [facility] Disclaimer: The information contained in this section may have been updated after the patient was seen, as this information can be updated by other users. Medical History Hypertension Surgical History History of shoulder surgery Social History Smoking Status: Never smoker alcohol intake: never current occupational status: employed Travel in the last 8 weeks?: None caffeine: Yes Have you lived/traveled outside [place] in past 30 days?: No Contact w/someone who lives/traveled outside US past 30 days?: No Exposure to someone with infectious disease in past 14 days?: No Do you have a fever (greater than 100.4 F or 38 C)?: No Have you tested positive for COVID-19?: No Exposed to someone with COVID-19 in past 14 days?: No Do you have a sore throat?: No Do you have a cough?: No Do you have any weakness?: No Do you have any diarrhea?: No Are you experiencing any unusual bleeding?: No Do you have any muscle aches/pain?: No Do you have any abdominal pain?: No Are you experiencing loss of taste or smell?: No Other Medical History Have you received the Flu Vaccine for this season: No Have you received the Pneumonia Vaccine: No Review of Systems Review of Systems Review of systems:: pertinent systems reviewed and negative unless documented below Meds Home Medications and Allergies Home Medications ?Medication ?Instructions ?Recorded ?Confirmed ?Type cephalexin 500 mg capsule 500 mg PO QID #40 caps 09/17 Rx losartan 25 mg tablet 25 mg PO DAILY Hypertension 09/17/22 09/17/22 History mupirocin 2 % topical ointment 1 applic topical TID 7 days #15 09/17/22 Rx grams New Prescriptions to Start Prescriptions: Allergies Allergy/AdvReac Type Severity Reaction Status Date / Time amoxicillin Allergy Verified 09/27/17 09:13 Penicillins Allergy Verified 09/27/17 09:13 Exam Data for Last 24 hours Vital signs and Labs for Last 24 Hours: Temp Pulse Resp BP Pulse Ox O2 Del Method 98.2 F 115 H 16 189/112 H 94 L Room Air 09/03/24 18:29 09/03/24 19:51 09/03/24 19:51 09/03/24 19:51 09/03/24 19:51 09/03/24 19:51 Laboratory Results - last 24 hr 09/03/24 18:46: WBC 8.8, RBC 5.62, Hgb 16.6, Hct 46.7, MCV 83.1, MCH 29.5, MCHC 35.5 H, RDW 13.2, Plt Count 320, MPV 10.0, Neut % (Auto) 68.2, Lymph % (Auto) 22.2, [place] % (Auto) 6.2, Eos % (Auto) 2.5, Baso % (Auto) 0.7, Neut # (Auto) 6.0, Lymph # (Auto) 1.9, [place] # (Auto) 0.5, Eos # (Auto) 0.2, Baso # (Auto) 0.1, D- Dimer 1.14 H, Sodium 138, Potassium 4.5, Chloride 104, Carbon Dioxide 25, Anion Gap 13.5, BUN 13, Creatinine 1.00, Estimated Creat Clear 113, Estimated GFR 80, Est GFR ( Amer) 97, Glucose 118 H, Calcium 9.0, Total Bilirubin 1.1, AST 37, ALT 28, Alkaline Phosphatase 77, Troponin I 0.02, Total Protein 8.4 H, Albumin 4.6, Globulin 3.8 H, Albumin/Globulin Ratio 1.2 09/03/24 19:33: Urine Color Yellow, Urine Appearance Clear, Urine pH 7.0, Ur Specific [place] 1.015, Urine Protein Negative, Urine Glucose (UA) Negative, Urine Ketones Negative, Urine Blood Negative, Urine Nitrate Negative, Urine Bilirubin Negative, Urine Urobilinogen 1.0, Ur Leukocyte Esterase Negative I & O for Last 24 hours: Intake & Output 08/31/24 09/01/24 09/02/24 09/03/24 23:59 23:59 23:59 23:59 Intake Total 55.417 / 55.417 Balance 55.417 / 55.417 Weight 88.451 kg Constitutional Constitutional: no acute distress *Routine HEENT Exam Head: Present normocephalic Eye: Present EOMI and PERRL ENT: Present mucous membranes moist *Routine Neck Exam Neck: Present supple; Absent lymphadenopathy *Routine Respiratory Exam Respiratory: Present CTA bilaterally *Routine Cardiovascular Exam Cardiovascular: Present RRR *Routine Abdominal Exam Abdominal: Present soft and normoactive bowel sounds; Absent tenderness *Routine Rectal Exam Rectal:: deferred *Routine Genitalia Exam Genitalia:: deferred *Routine Extremities Exam Extremities: Absent cyanosis, clubbing or edema *Routine Skin Exam Skin: Present warm; Absent rash *Routine Neurological Exam Neurological: Present alert and oriented X3 Assessment and Plan *Assessment and plan (1) Hypertensive emergency: Status: Acute Category: Medical Code(s): I16.1 - Hypertensive emergency (2) Chest pain: Status: Acute Qualifiers: Chest pain type: other chest pain Qualified Code(s): R07.89 - Other chest pain; R07.8 - Other chest pain Category: Medical Code(s): R07.9 - Chest pain, unspecified (3) Headache: Status: Acute Category: Medical Code(s): R51.9 - Headache, unspecified Plan 48-year-old male known hypertension not on medical therapy presenting with hypertensive emergency. Started on nicardipine drip in the emergency department with substantial improvement of his blood pressure. Initiate p.o. antihyperten sives in the morning and wean drip. His symptoms include intermittent chest pain and also by temporal headache. Symptoms have resolved to medical therapy Hypertensive emergency -Admit to ICU - Cardene drip blood pressure goal 180 - Start irbesartan in the morning - Start Procardia 30 in the morning - Wean drip after p.o. antihypertensive administration - Echo - Tele- -cardiology consult
--- NOTE | 2024-09-03 20:08 | CT_ITS ---
PROCEDURE INFORMATION: Exam: CTA Abdomen and Pelvis With Contrast Exam date and time: 09/03/2024 8:49 PM Age: 48 years old Clinical indication: Pain; Other: High BP; Additional info: Severe hypertension systolic 250 TECHNIQUE: Imaging protocol: Computed tomographic angiography of the abdomen and pelvis with contrast. Exam focused on the arteries. 3D rendering (Not supervised by radiologist): MIP and/or 3D reconstructed images were created by the technologist. Radiation optimization: All CT scans at this facility use at least one of these dose optimization techniques: automated exposure control; mA and/or kV adjustment per patient size (includes targeted exams where dose is matched to clinical indication); or iterative reconstruction. Contrast material: ISOVUE; Contrast volume: 75 ml; Contrast route: INTRAVENOUS (IV); COMPARISON: CT ANGIO CHEST 09/03/2024 8:49 PM FINDINGS: Aorta: No aortic aneurysm. No aortic dissection. Celiac trunk and mesenteric arteries: No occlusion or significant stenosis. Renal arteries: No occlusion or significant stenosis. Right iliac arteries: No occlusion or significant stenosis. Left iliac arteries: No occlusion or significant stenosis. Liver: No mass. Gallbladder and biliary ducts: Unremarkable. No calcified stones. No ductal dilation. Pancreas: Unremarkable. No mass. No ductal dilation. Spleen: Unremarkable. No splenomegaly. Adrenal glands: Unremarkable. No mass. Kidneys and ureters: Unremarkable. No solid mass. No hydronephrosis. Stomach and bowel: Unremarkable. No obstruction. No mucosal thickening. Appendix: No evidence of appendicitis. Intraperitoneal space: Unremarkable. No free air. No significant fluid collection. Lymph nodes: Unremarkable. No enlarged lymph nodes. Urinary bladder: Unremarkable. No mass. Reproductive: Unremarkable as visualized. Bones/joints: No acute fracture. Soft tissues: Unremarkable. IMPRESSION: Unremarkable CTA.
--- NOTE | 2024-09-03 20:11 | PC.NURSE ---
admitting provider at the bedside
[2024-09-03] MEDS: 0.9 % SODIUM CHLORIDE 50 ML VIAL IV (20:51)
[2024-09-03] MEDS: SODIUM CHLORIDE 0.9% 10ML SYR (RAD ONLY) 10 ML IV (20:51)
[2024-09-03] MEDS: IOPAMIDOL-370 (76%);100ML BOTTLE 80 ML IV (20:51)
--- NOTE | 2024-09-03 20:53 | PC.NURSE ---
Dr. Michael Granado has accepted pt for admit, however pt still needs CTA's before going upstairs. Notified House of this as well.
--- NOTE | 2024-09-03 21:40 | PC.NURSE ---
Report given to Demetria DYKES in the ICU
--- NOTE | 2024-09-03 22:00 | PC.NURSE ---
Patient arrived to ICU unit via wheelchair @21:50
--- NOTE | 2024-09-03 22:23 | PC.NURSE ---
Education was provided to patient on the ICU CRE swab protocol. Patient politely declined the CRE swab. Demetria Candelario RN aware.
[2024-09-03 23:10] LABS: Troponin I < 0.01 ng/ml (0.00-0.034)
[2024-09-04] VITALS (51 sets, daily range): BP systolic 123–164; BP diastolic 84–106; PULSE 62–93; RESP 11–27; TEMP 36.5–37; O2SAT 91–97; BMI 30.4
[2024-09-04 01:34] LABS: Troponin I 0.04 ng/ml (0.00-0.034)
[2024-09-04 06:09] LABS: Basophils # 0.1 K/mm3 (0-0.2); Eosinophils # 0.2 Kmm3 (0.0-0.4); Eosinophils % 3.2 % (0.1-12.0); Hematocrit 47.9 % (42.0-52.0); Hemoglobin 15.7 g/dL (14.1-18.0); Immature Granulocytes # 0.02 10^3uL; Immature Granulocytes % 0.3 %; Lymphocytes # 1.6 K/mm3 (0.7-4.5); Lymphocytes % 22.9 % (10-50); Mean Corpuscular HGB Conc 32.8 g/dL (31.8-35.4); Mean Corpuscular Hemoglobin 27.6 pg (27.0-31.2); Mean Corpuscular Volume 84.2 fl (80-94); Mean Platelet Volume 10.2 fl (7.4-10.4); Monocytes # 0.5 K/mm3 (0.1-1.0); Monocytes % 7.2 % (1.7-9.3); Neutrophils # 4.7 K/mm3 (1.8-7.8); Neutrophils % 65.4 % (37.0-80.0); Nucleated Red Blood Cells # 0 10^3/uL; Nucleated Red Blood Cells % 0 %; Platelet Count 317 K/mm3 (142-424); Red Blood Count 5.69 M/mm3 (4.60-6.20); Red Cell Distribution Width 13.2 % (11.5-17.5); Red Cell Distribution Width-SD 40.4 fL; White Blood Count 7.1 K/mm3 (4.8-10.8)
[2024-09-04 06:15] LABS: INR 1.03 (0.9-1.1); Prothrombin Time 11.4 seconds (10.1-12.5)
--- NOTE | 2024-09-04 06:22 | PC.NURSE ---
Pt alert and oriented. Pt has no complaints at this time. Pt is on 2.5 mg/hr of nicardipine due to bp being 149/106. pt lung sounds are clear. pt was tachy when he arrived on the unit. pt heart rate is now in the 70s. pt is non-compliant with medication. He used to be prescribed losartan but does not take anything at home other than tylenol if its needed. Pts ex is bedside.
[2024-09-04 06:26] LABS: Cholesterol 210 mg/dl (140-200); Triglycerides 114 mg/dl (30-150); VLDL Cholesterol 23 mg/dL (0-40)
[2024-09-04 06:27] LABS: Albumin Level 4.3 g/dl (3.5-5.0); Chloride 107 mmol/L (98-107); Chol/HDL Ratio 5.5 (1-3.5); HDL Cholesterol 38 mg/dl (40-60); Sodium 137 mmol/L (136-145)
[2024-09-04 06:29] LABS: Alanine Aminotransferase 25 U/L (12-78); Aspartate Amino Transferase 23 U/L (17-59); Blood Urea Nitrogen 16 mg/dl (9-20); Creatinine Clearance Estimated 129 mL/min (50-200); Estimated Glomerular Filt Rate 90 ml/min (>60); GFR (African American) 109 ML/MIN (>60)
[2024-09-04 06:30] LABS: Albumin/Globulin Ratio 1.3 (1.1-1.8); Alkaline Phosphatase 88 U/L (38-126); Bilirubin,Total 0.5 mg/dl (0.2-1.3); Carbon Dioxide 25 mmol/L (22.0-30.0); Globulin 3.3 g/dL (1.3-3.2); Glucose 113 mg/dl (74-100); Phosphorous 3.4 mg/dl (2.5-4.5); Total Protein,Serum 7.6 g/dl (6.3-8.2)
[2024-09-04 06:37] LABS: Direct LDL Cholesterol 132.85 mg/dL (100-129)
--- NOTE | 2024-09-04 08:30 | PC.NURSE ---
echo at bedside.
[2024-09-04] MEDS: IRBESARTAN 75MG TABLET 75 MG PO (08:42)
[2024-09-04] MEDS: NIFEdipine XL 30MG TABLET 30 MG PO (08:42)
[2024-09-04] MEDS: IBUPROFEN 600 MG TABLET PO (09:43)
[2024-09-04] MEDS: ASPIRIN EC 81MG TABLET 81 MG PO (09:44)
--- NOTE | 2024-09-04 11:24 | EXP.CARD.CON ---
History of Present Illness History of Present Illness Consult date: 09/04/24 Requesting physician: Tyrese Jones Consult reason: hypertension Chief complaint: High blood pressure History of present illness: 48-year-old white male without known cardiovascular disease but with untreated high blood pressure. Patient presented to the emergency room yesterday after he was with family and checked his blood pressure incidentally and noted it was over 200. This reading was confirmed in the emergency room and at that time he was also complaining of headache and intermittent chest pains that he was started on oral medication, nicardipine IV and admitted to the ICU overnight. This morning his blood pressure is 160s on oral medication only and has titrated off the nicardipine. He denies chest pain shortness of breath and headache to me. Troponin slightly elevated at 0.04, LDL 132, EKG sinus rhythm 109 bpm with LVH pattern, D-dimer elevated at 1.1 but chest CTA negative for PE. Patient states his mother had an MA in her 50s. Patient is non-smoker [facility] Disclaimer: The information contained in this section may have been updated after the patient was seen, as this information can be updated by other users. Medical History Hypertension Surgical History History of shoulder surgery Family History Other Family history of hypertension Family history of myocardial infarction Family history of stroke Social History Smoking Status: Never smoker alcohol intake: never current occupational status: employed Travel in the last 8 weeks?: None caffeine: Yes Review of Systems Constitutional Constitutional: Denies fatigue and Denies weakness Eyes Eyes: Denies loss of vision ENT Ears, Nose, Mouth, and Throat: Denies hearing loss and Denies vertigo *Cardiovascular Cardiovascular: Denies chest pain, Denies dyspnea and Denies syncope *Respiratory Respiratory: Denies cough and Denies dyspnea *Gastrointestinal Gastrointestinal: Denies change in stool character, Denies nausea and Denies vomiting *Genitourinary Genitourinary: Denies difficulty urinating *Musculoskeletal Musculoskeletal: Denies muscle weakness Integumentary/Breasts Skin/Breast: Denies changing lesions *Neurologic Neurologic: Denies loss of vision, Denies syncope, Denies vertigo and Denies weakness Endocrine Endocrine: Denies fatigue Exam Data for Last 24 hours Vital signs and Labs for Last 24 Hours: Temp Pulse Resp BP Pulse Ox O2 Del Method 97.7 F 81 11 L 150/106 H 95 Room Air 09/04/24 08:00 09/04/24 10:30 09/04/24 11:01 09/04/24 11:01 09/04/24 10:30 09/04/24 10:30 Laboratory Results - last 24 hr 09/03/24 18:46: WBC 8.8, RBC 5.62, Hgb 16.6, Hct 46.7, MCV 83.1, MCH 29.5, MCHC 35.5 H, RDW 13.2, Plt Count 320, MPV 10.0, Neut % (Auto) 68.2, Lymph % (Auto) 22.2, [place] % (Auto) 6.2, Eos % (Auto) 2.5, Baso % (Auto) 0.7, Neut # (Auto) 6.0, Lymph # (Auto) 1.9, [place] # (Auto) 0.5, Eos # (Auto) 0.2, Baso # (Auto) 0.1, D-Dimer 1.14 H, Sodium 138, Potassium 4.5, Chloride 104, Carbon Dioxide 25, Anion Gap 13.5, BUN 13, Creatinine 1.00, Estimated Creat Clear 113, Estimated GFR 80, Est GFR ( Amer) 97, Glucose 118 H, Calcium 9.0, Total Bilirubin 1.1, AST 37, ALT 28, Alkaline Phosphatase 77, Troponin I 0.02, Total Protein 8.4 H, Albumin 4.6, Globulin 3.8 H, Albumin/Globulin Ratio 1.2 09/03/24 19:33: Urine Color Yellow, Urine Appearance Clear, Urine pH 7.0, Ur Specific [place] 1.015, Urine Protein Negative, Urine Glucose (UA) Negative, Urine Ketones Negative, Urine Blood Negative, Urine Nitrate Negative, Urine Bilirubin Negative, Urine Urobilinogen 1.0, Ur Leukocyte Esterase Negative, Urine RBC None, Urine WBC None, Ur Squamous Epith Cells None, Urine Bacteria None 09/03/24 22:10: Troponin I < 0.01 09/04/24 01:00: Troponin I 0.04 H 09/04/24 05:22: WBC 7.1, RBC 5.69, Hgb 15.7, Hct 47.9, MCV 84.2, MCH 27.6, MCHC 32.8, RDW 13.2, Plt Count 317, MPV 10.2, Neut % (Auto) 65.4, Lymph % (Auto) 22.9, [place] % (Auto) 7.2, Eos % (Auto) 3.2, Baso % (Auto) 1.0, Neut # (Auto) 4.7, Lymph # (Auto) 1.6, [place] # (Auto) 0.5, Eos # (Auto) 0.2, Baso # (Auto) 0.1, PT 11.4, INR 1.03, Sodium 137, Potassium 4.0, Chloride 107, Carbon Dioxide 25, Anion Gap 9.0, BUN 16, Creatinine 0.90, Estimated Creat Clear 129, Estimated GFR 90, Est GFR ( Amer) 109, Glucose 113 H, Calcium 9.0, Phosphorus 3.4, Magnesium 2.0, Total Bilirubin 0.5, AST 23 D, ALT 25, Alkaline Phosphatase 88, Total Protein 7.6, Albumin 4.3, Globulin 3.3 H, Albumin/Globulin Ratio 1.3, Triglycerides 114, Cholesterol 210 H, LDL Cholesterol Direct 132.85 H, VLDL Cholesterol 23, HDL Cholesterol 38 L, Cholesterol/HDL Ratio 5.5 H I & O for Last 24 hours: Intake & Output 09/01/24 09/02/24 09/03/24 09/04/24 23:59 23:59 23:59 23:59 Intake Total 237.917 / 487.917 722.084 / 722.084 Output Total 275 / 275 400 / 400 Balance -37.083 / 212.917 322.084 / 322.084 Weight 200 lb 8 oz 200 lb 7.99 oz Constitutional Constitutional: no acute distress and cooperative *Routine HEENT Exam Eye: Present PERRL *Routine Respiratory Exam Respiratory: Present CTA bilaterally; Absent accessory muscle use, wheezes or crackles *Routine Cardiovascular Exam Cardiovascular: Present RRR, Normal S1 and Normal S2; Absent murmur, gallop or rubs *Routine Abdominal Exam Abdominal: Present soft; Absent tenderness *Routine Extremities Exam Extremities: Present pulses intact; Absent cyanosis or edema *Routine Skin Exam Skin: Present intact; Absent erythema or wounds *Routine Neurological Exam Neurological: Present alert and oriented X3 Routine Psychiatric Exam Psychiatric: Present cooperative Meds Home Medications and Allergies Home Medications ?Medication ?Instructions ?Recorded ?Confirmed ?Type aspirin 81 mg tablet,delayed 81 mg PO DAILY 30 days #30 tabs 09/04/24 Rx release atorvastatin 40 mg tablet 80 mg (2 x 40 mg) PO HS 30 days 09/04/24 Rx #60 tabs irbesartan 75 mg tablet 75 mg PO DAILY 30 days #30 tabs 09/04/24 Rx metoprolol succinate 25 mg 25 mg PO DAILY 30 days #30 tabs 09/04/24 Rx tablet,extended release 24 hr nifedipine 30 mg tablet,extended 30 mg PO DAILY 30 days #30 tabs 09/04/24 Rx release 24 hr New Prescriptions to Start Prescriptions: aspirin Karen,Tyrese atorvastatin Karen,Tyrese irbesartan Karen,Tyrese metoprolol succinate Karen,Tyrese nifedipine Karen,Tyrese Allergies Allergy/AdvReac Type Severity Reaction Status Date / Time amoxicillin Allergy Verified 09/27/17 09:13 Penicillins Allergy Verified 09/27/17 09:13 Assessment and Plan *Assessment and plan (1) Hypertensive emergency: Status: Acute Category: Medical Code(s): I16.1 - Hypertensive emergency Plan Htn Emergency - known htn, exacerbated secondary to med noncompliance - presented with BP 246/141 with headache and elevated Trop - no neurologic symptoms, head CT WNL - Trop 0.04 then trended down, no ischemia noted on EKG, pt denies angina - cont nifedipine and irbesartan started by hospitalist, will add low-dose beta-zaid - 2D echo pending - check outpatient renal duplex, HSS, secondary Htn labs Elevated Troponin - Trop 0.04 in setting of BP 246/141 - pt denies angina - EKG - no acute ST changes - ECHO pending - start ASA, BB, Statin - Discussed increased likelihood of underlying coronary disease with elevated troponin. Offered left heart cath versus outpatient testing. Patient prefers outpatient testing. Will reassess after echo results. Hyperlipidemia - LDL 132 - Patient has uncontrolled high blood pressure, elevated troponin, family history of coronary disease - I recommend high-dose statin with aggressive control *Further plans pending ECHO reults. Likely home today with close outpatient f/u. Addendum: 2D echo shows normal BiV function. Reviewed results with patient. He is agreeable to treatment and plan as outlined above. He needs prompt outpatient stress test and 2-week follow-up in our office. CV discharge Meds: Aspirin 81 mg 1 p.o. daily Atorvastatin 80 mg 1 p.o. daily Toprol-XL 25 mg 1 p.o. daily Valsartan 40 mg 1 p.o. daily Nifedipine 30 mg 1 p.o. daily Nitroglycerin sublingual as needed chest pain or blood pressure greater than 180 systolic
[2024-09-04] MEDS: METOPROLOL SUCCINATE XL 25MG TABLET 25 MG PO (11:40)
--- NOTE | 2024-09-04 12:52 | P.DS_ITS ---
General Admission date:: 09/03/24 Discharge date: 09/04/24 HPI HPI HPI: 40-year-old male presents to the emergency department for evaluation of high blood pressure. Patient states that he was at [facility] and checked his blood pressure and was greater than 100. Symptoms include a bifrontal headache that has been present for multiple days he is denying chest pain currently, however he has been having intermittent chest pain throughout the week. He has a history of hypertension but is noncompliant with his medication regimen. In the emergency department blood pressure was greater than 200 he was started on nicardipine with substantial improvement of blood pressure. symtpoms improved ED EKG [address] depressions in lateral precordial leads. D-dimer was obtained which was elevated, chest abdomen pelvis CTA was ordered which demonstrated no acute dissection,. CTA abdomen pelvis no renal artery stenosis History independently obtained. Diagnostic studies and laboratory independently interpreted. Discussed case with ER physician. Reviewed prior records. Hospital Course Hospital Course Hospital Course: 48-year-old male known hypertension not on medical therapy presenting with hypertensive emergency. Started on nicardipine drip in the emergency department with substantial improvement of his blood pressure. Able to transition to oral antihypertensives. Doing well off Cardene drip. Cardiology evaluated, stable discharge home with close follow-up as an outpatient. Problems addressed as fo llows: Hypertensive emergency Elevated troponin Hyperlipidemia -Known history of hypertension, poor compliance with medication as an outpatient. Has not been on blood pressure meds in over a year. Presented with severely elevated blood pressure of 246/141. Found to have headache and elevated troponin. Initiated on Cardene drip with improvement. Given improvement in blood pressure this morning, transitioned to irbesartan and nifedipine. Blood pressure remained well-controlled with systolics less than 150. Cardiology evaluated. Echo obtained showing normal BiV function. Recommended considering heart catheter stress test. Patient declined at this time. Will continue treatment for blood pressure with oral regimen at discharge. Initiated on goal-directed meds for cardiovascular risk reduction. Continue aspirin 81 mg daily, Lipitor 80 mg daily, Toprol-XL 25 mg daily, irbesartan 75 mg p.o. daily, nifedipine 30 mg p.o. daily. Prescribed nitroglycerin sublingual as needed for chest pain. - LDL elevated to 132 - Follow-up with cardiology in 1 to 2 weeks for further management. Total time spent on discharge 32 minutes in counseling, documentation, chart review, and direct care with patient. Exam Data for Last 24 hours Vital signs and Labs for Last 24 Hours: Temp Pulse Resp BP Pulse Ox O2 Del Method 98.3 F 71 22 147/95 H 97 Room Air 09/04/24 12:00 09/04/24 12:00 09/04/24 12:00 09/04/24 12:00 09/04/24 12:00 09/04/24 12:00 Laboratory Results - last 24 hr 09/03/24 18:46: WBC 8.8, RBC 5.62, Hgb 16.6, Hct 46.7, MCV 83.1, MCH 29.5, MCHC 35.5 H, RDW 13.2, Plt Count 320, MPV 10.0, Neut % (Auto) 68.2, Lymph % (Auto) 22.2, [place] % (Auto) 6.2, Eos % (Auto) 2.5, Baso % (Auto) 0.7, Neut # (Auto) 6.0, Lymph # (Auto) 1.9, [place] # (Auto) 0.5, Eos # (Auto) 0.2, Baso # (Auto) 0.1, D- Dimer 1.14 H, Sodium 138, Potassium 4.5, Chloride 104, Carbon Dioxide 25, Anion Gap 13.5, BUN 13, Creatinine 1.00, Estimated Creat Clear 113, Estimated GFR 80, Est GFR ( Amer) 97, Glucose 118 H, Calcium 9.0, Total Bilirubin 1.1, AST 37, ALT 28, Alkaline Phosphatase 77, Troponin I 0.02, Total Protein 8.4 H, Albumin 4.6, Globulin 3.8 H, Albumin/Globulin Ratio 1.2 09/03/24 19:33: Urine Color Yellow, Urine Appearance Clear, Urine pH 7.0, Ur Specific [place] 1.015, Urine Protein Negative, Urine Glucose (UA) Negative, Urine Ketones Negative, Urine Blood Negative, Urine Nitrate Negative, Urine Bilirubin Negative, Urine Urobilinogen 1.0, Ur Leukocyte Esterase Negative, Urine RBC None, Urine WBC None, Ur Squamous Epith Cells None, Urine Bacteria None 09/03/24 22:10: Troponin I < 0.01 09/04/24 01:00: Troponin I 0.04 H 09/04/24 05:22: WBC 7.1, RBC 5.69, Hgb 15.7, Hct 47.9, MCV 84.2, MCH 27.6, MCHC 32.8, RDW 13.2, Plt Count 317, MPV 10.2, Neut % (Auto) 65.4, Lymph % (Auto) 22.9, [place] % (Auto) 7.2, Eos % (Auto) 3.2, Baso % (Auto) 1.0, Neut # (Auto) 4.7, Lymph # (Auto) 1.6, [place] # (Auto) 0.5, Eos # (Auto) 0.2, Baso # (Auto) 0.1, PT 11.4, INR 1.03, Sodium 137, Potassium 4.0, Chloride 107, Carbon Dioxide 25, Anion Gap 9.0, BUN 16, Creatinine 0.90, Estimated Creat Clear 129, Estimated GFR 90, Est GFR ( Amer) 109, Glucose 113 H, Calcium 9.0, Phosphorus 3.4, Magnesium 2.0, Total Bilirubin 0.5, AST 23 D, ALT 25, Alkaline Phosphatase 88, Total Protein 7.6, Albumin 4.3, Globulin 3.3 H, Albumin/Globulin Ratio 1.3, Triglycerides 114, Cholesterol 210 H, LDL Cholesterol Direct 132.85 H, VLDL Cholesterol 23, HDL Cholesterol 38 L, Cholesterol/HDL Ratio 5.5 H I & O for Last 24 hours: Intake & Output 09/01/24 09/02/24 09/03/24 09/04/24 23:59 23:59 23:59 23:59 Intake Total 237.917 / 487.917 722.084 / 722.084 Output Total 275 / 275 400 / 400 Balance -37.083 / 212.917 322.084 / 322.084 Weight 90.945 kg 90.945 kg Constitutional Constitutional: no acute distress, obese and cooperative *Routine HEENT Exam Head: Present normocephalic Eye: Present EOMI and PERRL ENT: Present mucous membranes moist *Routine Neck Exam Neck: Present supple; Absent lymphadenopathy *Routine Respiratory Exam Respiratory: Present CTA bilaterally; Absent rhonchi, wheezes or crackles *Routine Cardiovascular Exam Cardiovascular: Present RRR *Routine Abdominal Exam Abdominal: Present soft and normoactive bowel sounds; Absent tenderness *Routine Rectal Exam Patient deferred: visual exam *Routine Exam Patient deferred: penile exam *Routine Extremities Exam Extremities: Absent cyanosis, clubbing or edema *Routine Skin Exam Skin: Present warm; Absent rash *Routine Neurological Exam Neurological: Present alert, oriented X3 and moving all extremities; Absent altered mental status Results Data Completed and Pending Labs on day of discharge: Labs from last 24 hours 09/04/24 09/04/24 09/03/24 05:22 01:00 22:10 WBC 7.1 RBC 5.69 Hgb 15.7 Hct 47.9 MCV 84.2 MCH 27.6 MCHC 32.8 RDW 13.2 Plt Count 317 MPV 10.2 Neut % (Auto) 65.4 Lymph % (Auto) 22.9 [place] % (Auto) 7.2 Eos % (Auto) 3.2 Baso % (Auto) 1.0 Neut # (Auto) 4.7 Lymph # (Auto) 1.6 [place] # (Auto) 0.5 Eos # (Auto) 0.2 Baso # (Auto) 0.1 PT 11.4 INR 1.03 D-Dimer Sodium 137 Potassium 4.0 Chloride 107 Carbon Dioxide 25 Anion Gap 9.0 BUN 16 Creatinine 0.90 Estimated Creat Clear 129 Estimated GFR 90 Est GFR ( Amer) 109 Glucose 113 H Calcium 9.0 Phosphorus 3.4 Magnesium 2.0 Total Bilirubin 0.5 AST 23 D ALT 25 Alkaline Phosphatase 88 Troponin I 0.04 H < 0.01 Total Protein 7.6 Albumin 4.3 Globulin 3.3 H Albumin/Globulin Ratio 1.3 Triglycerides 114 Cholesterol 210 H LDL Cholesterol Direct 132.85 H VLDL Cholesterol 23 HDL Cholesterol 38 L Cholesterol/HDL Ratio 5.5 H Urine Color Urine Appearance Urine pH Ur Specific [place] Urine Protein Urine Glucose (UA) Urine Ketones Urine Blood Urine Nitrate Urine Bilirubin Urine Urobilinogen Ur Leukocyte Esterase Urine RBC Urine WBC Ur Squamous Epith Cells Urine Bacteria 09/03/24 09/03/24 19:33 18:46 WBC 8.8 RBC 5.62 Hgb 16.6 Hct 46.7 MCV 83.1 MCH 29.5 MCHC 35.5 H RDW 13.2 Plt Count 320 MPV 10.0 Neut % (Auto) 68.2 Lymph % (Auto) 22.2 [place] % (Auto) 6.2 Eos % (Auto) 2.5 Baso % (Auto) 0.7 Neut # (Auto) 6.0 Lymph # (Auto) 1.9 [place] # (Auto) 0.5 Eos # (Auto) 0.2 Baso # (Auto) 0.1 PT INR D-Dimer 1.14 H Sodium 138 Potassium 4.5 Chloride 104 Carbon Dioxide 25 Anion Gap 13.5 BUN 13 Creatinine 1.00 Estimated Creat Clear 113 Estimated GFR 80 Est GFR ( Amer) 97 Glucose 118 H Calcium 9.0 Phosphorus Magnesium Total Bilirubin 1.1 AST 37 ALT 28 Alkaline Phosphatase 77 Troponin I 0.02 Total Protein 8.4 H Albumin 4.6 Globulin 3.8 H Albumin/Globulin Ratio 1.2 Triglycerides Cholesterol LDL Cholesterol Direct VLDL Cholesterol HDL Cholesterol Cholesterol/HDL Ratio Urine Color Yellow Urine Appearance Clear Urine pH 7.0 Ur Specific [place] 1.015 Urine Protein Negative Urine Glucose (UA) Negative Urine Ketones Negative Urine Blood Negative Urine Nitrate Negative Urine Bilirubin Negative Urine Urobilinogen 1.0 Ur Leukocyte Esterase Negative Urine RBC None Urine WBC None Ur Squamous Epith Cells None Urine Bacteria None DS: Diagnosis Discharge Diagnosis (1) Hypertensive emergency: Status: Acute Code(s): I16.1 - Hypertensive emergency Meds Home Medications and Allergies Home Medications ?Medication ?Instructions ?Recorded ?Confirmed ?Type aspirin 81 mg tablet,delayed 81 mg PO DAILY 30 days #3 0 tabs 09/04/24 Rx release atorvastatin 40 mg tablet 80 mg (2 x 40 mg) PO HS 30 d ays 09/04/24 Rx #60 tabs irbesartan 75 mg tablet 75 mg PO DAILY 30 days #30 t abs 09/04/24 Rx metoprolol succinate 25 mg 25 mg PO DAILY 30 days #30 tabs 09/04/24 Rx tablet,extended release 24 hr nifedipine 30 mg tablet,extended 30 mg PO DAILY 30 day s #30 tabs 09/04/24 Rx release 24 hr New Prescriptions to Start Prescriptions: Tyrese Tsang atorvastatin Tyrese Jones irbesartan Tyrese Jones metoprolol succinate Tyrese Jones nifedipine Tyrese Jones Allergies Allergy/AdvReac Type Severity Reaction Status Date / Time amoxicillin Allergy Verified 09/27/17 09:13 Penicillins Allergy Verified 09/27/17 09:13 Discharge Plan Disposition Patient Disposition: Home, Self-Care Condition: Fair Follow up Plan Follow up with: Luiz Saavedra PA [Physician Template Fitter, Cardiology] - 09/14/24 9:30 am Jose L Oneal MD [Primary Care Provider, Internal Medicine] - 09/07/24 2:15 pm Prescriptions/Medication Reconciliation: New nifedipine 30 mg Tablet Extended Release 24hr 30 mg PO DAILY 30 Days Qty: 30 0RF atorvastatin 40 mg Tablet 80 mg PO HS 30 Days Qty: 60 0RF aspirin 81 mg Tablet,Delayed Release (Dr/Ec) 81 mg PO DAILY 30 Days Qty: 30 0RF irbesartan 75 mg Tablet 75 mg PO DAILY 30 Days Qty: 30 0RF metoprolol succinate 25 mg Tablet Extended Release 24 Hr 25 mg PO DAILY 30 Days Qty: 30 0RF Problem Reconciliation Problems Reviewed?: Yes Patient Discharge Instructions ACTIVITY: Continue current activity DIET: continue same diet Stand Alone Forms: [facility] Work Release Patient Instructions: Treatments for High Blood Pressure: More Than Just Taking a Pill, Hypertension (Alternative Therapy) Print Language: Divehi Providers Primary Care Provider: Jose L Oneal Admit Provider: Hung Hartmann Attending Provider: Hung Hartmann
--- NOTE | 2024-09-04 14:47 | PC.NURSE ---
Spoke with meds to beds. Awaiting medications to arrive at bedside.
--- NOTE | 2024-09-04 14:58 | PC.NURSE ---
pt states he doesn't want to wait on clinic to bring medication, pt states he will walk down and get them. clinic called and notified.
--- NOTE | 2024-09-04 20:21 | CA_ITS ---
APPROVED REPORT EXAM: Comprehensive 2D, Doppler, and color-flow Echocardiogram Transport Pilot: Shari Thomas RVT Ht: 5 ft 8 in Wt: 200lbs BSA: 2.04 BP: 155/99 mmHg Indications: HYPERTENSION CRISIS,CHEST PAIN 2D Dimensions LA Volume 27.40 mL LA Volume Index 13.37 mL/m2 (M/F) 16-34 M-Mode Dimensions RVDd 1.78 cm (0.9-2.6) LA Diam 3.49 cm (1.9-4.0) LVDd 4.50 cm (3.5-5.7) LVDs 2.85 cm (3.5-5.7) IVSd 1.91 cm (0.6-1.1) PWd 0.55 cm (0.6-1.1) EF (Teich) 66.60% FS 36.70% EDV (Teich) 92.40 mL TAPSE 2.26 (<1.7) ESV (Teich) 30.90 mL LV Diastology E Decel Time 263 (160-240 msec) E/A Ratio 1.1 Aortic Valve CE Index 1.53 cm2/m2 AoV Peak Hua. 125.0 (50-130 cm/s) AO Peak GR. 6.20 mmHg AO Mean GR. 3.50 (<5 mmHg) AO VTI 23.2 (18-25 cm) CE (VTI) 3.19 (2.5-4.5 cm2) Mitral Valve MV E Max Hua. 96.0 (40-130 cm/s) MV A Velocity 86.0 (40-130 cm/s) E/A Ratio 1.12 MV PHT 77.0 ms Pulmonary Valve PV Peak Velocity 99.0 (50-150 cm/s) Left Ventricle The left ventricle is normal size. The left ventricular systolic function is normal. The left ventricular ejection fraction is within the normal range. There is normal left ventricular wall thickness. There is normal LV segmental wall motion. The left ventricular diastolic function is normal. LVEF is 55%. Right Ventricle Right ventricle is mildly dilated. The right ventricular systolic function is normal. Atria The left atrium size is normal. The right atrium size is normal. There is no Doppler evidence of interatrial shunt. Aortic Valve The aortic valve opens well. There is no aortic valvular stenosis. No aortic regurgitation is present. Mitral Valve The mitral valve is normal in structure. No evidence of mitral valve stenosis. Trace mitral regurgitation. Tricuspid Valve Tricuspid valve is grossly normal in structure and function. Trace tricuspid regurgitation. There is insufficient TR jet to estimate RVSP. Pulmonic Valve The pulmonary valve is normal in structure. Trace pulmonic regurgitation. Great Vessels The aortic root is normal in size. IVC is normal in size and collapses >50% with inspiration. Pericardium There is no pericardial effusion. Other Information Study Quality: Fair Conclusion Normal biventricular systolic function. Mild RV dilation. No significant valvular stenosis or regurgitation. Electronically signed by : Katty Etienne MD 09/04/2024 13:08:48
--- NOTE | 2024-09-05 11:01 | SW/DCPLANNER ---
Spoke with patient on the phone. Patient stated that he is doing well. Patient stated that is aware of his upcoming appointments. Patient stated that he was able to get his new medicine picked up from clinic pharmacy. Patient stated that he was wondering if he should take his medicine close to the same time that he was given here while in the hospital. I suggested that it would be better for patient to do that. Patient stated that he has no other concerns or questions at this time. Colby Schmidt
== END 2024-09-04 14:59 | disposition home or self-care (01) ==
LOC: ER 18:53 → ICU 20:52
PROVIDERS: Student in an Organized Health Care Education/Training Program; Admitting Provider Student in an Organized Health Care Education/Training Program; Emergency Provider Emergency Medicine; PCP Internal Medicine Adolescent Medicine; Visit Provider Student in an Organized Health Care Education/Training Program
DX: I16.1 Hypertensive emergency (principal); I10 Essential (primary) hypertension; T50.996A Underdosing of other drugs, medicaments and biological substances, initial encounter; E78.5 Hyperlipidemia, unspecified; R79.89 Other specified abnormal findings of blood chemistry; E66.9 Obesity, unspecified; Z82.3 Family history of stroke; Z82.49 Family history of ischemic heart disease and other diseases of the circulatory system; Z91.199 Patient's noncompliance with other medical treatment and regimen due to unspecified reason; Z68.30 Body mass index [BMI] 30.0-30.9, adult; Z88.0 Allergy status to penicillin; Z79.899 Other long term (current) drug therapy; Z79.82 Long term (current) use of aspirin
CPT/HCPCS: 96365; 96366; 96375; 36415; 70450; 71275; 74174; 80053; 80061; 81001; 83735; 84100; 84484; 85025; 85378; 85610; 93005; 93306; G0378; J0131; J1650; J2404; J7050; Q9967

== ENCOUNTER 2024-09-27 06:10 | Outpatient (CLI) | payer BC, SELFPAY ==
--- NOTE | 2024-09-27 | CA_ITS ---
APPROVED REPORT Exam: Exercise Treadmill Technologist: Karen Cummings Ht: 5 ft 8 in Wt: 199 lbs BSA: 2.04 m2 Medical History Medications: aspirin, atorvastatin, irbesartan, metoprolol succinate ER, nifedipine ER. Stress Test Details Test: Exercise stress testing was performed using a Steve protocol. HR Resting HR: 75 bpm Max Heart Rate (APMHR): 172.792269 bpm Max HR Achieved: 152 bpm Target HR (85% APMHR): 146.497140 bpm % of APMHR: 88.37 Recovery HR: 108 bpm BP Resting BP: 157.0/92.0 mmHg Max BP: 220.0/100.0 mmHg Recovery BP: 159.0/92.0 mmHg ECG Clinical Highest Stage Achieved: IV Stress ECG Conclusion Symptoms: No CP or SOA. Arrhythmias/Ectopy: PVC. ST-T Changes: <1.5mm ST changes. Electronically signed by : Katty Etienne MD 09/28/2024 12:36:30
--- NOTE | 2024-09-27 06:30 | NM_ITS ---
APPROVED REPORT Exam: Nuclear Stress Test Indication: Chest pain, SOB, HTN, High cholesterol, Family history Patient Location: Outpatient Stress Tech: Karen Mcintosh [place] Tech:Guillermina Steinberg, ARRT, RT (R)(N) Ht: 5 ft 8 in Wt: 199 lbs HR: 77 bpm BP: 150/94 mmHg BSA: 2.04 m2 TID: 1.08 BMI: 30.2 History: Chest pain, SOB, HTN, High cholesterol, Family history Procedure: Patient exercised on Steve protocol 9:05 minutes and sec, resting heart rate 77 bpm, resting blood pressure 150/94 mmHg, with exercise maximum heart rate achived was 157 bpm which is 91 % of the maximum predicted heart rate and blood pressure was 220/100 mmHg. Test was stopped due to SOB. Patient denied any complaint of chest pain. Patient has exercise capacity, achieved 10.3 METs of workload on treadmill, the blood pressure response to exercise was . Cardiac Stress and Resting SPECT Images: Cardiac Stress and Resting SPECT images were obtained using technetium 99m Myoview 29.8 mCi stress and 10.99 mCi at rest. Resting and stress imaging in supine and prone positions demonstrate no evidence of fixed or reversible perfusion defects. Gated imaging demonstrates normal global and regional LV systolic function. LVEF is calculated at 55%. Conclusion: No evidence of fixed or reversible perfusion defects. Gated imaging demonstrates normal global and regional LV systolic function. LVEF is calculated at 55%. Electronically signed by : Katty Etienne MD 09/27/2024 12:59:57
[2024-09-27] MEDS: SODIUM CHLORIDE 0.9% 10ML SYR (RAD ONLY) 10 ML IV ×2 (08:51)
[2024-09-27] MEDS: ISOTOPE MYOVIEW (PER STUDY) 1 DOSE IV (08:51)
--- NOTE | 2024-09-27 09:00 | CA_ITS ---
FINAL REPORT CLINICAL HISTORY: HTN COMPARISON: None FINDINGS: Aorta velocity: 122 cm/sec Right kidney: 9.4 cm No evidence of hydronephrosis or mass. Right intrarenal RI: 0.49-0.69 Right renal artery velocity: 227 cm/sec. Right RAR (Renal artery-Aortic Ratio): 1.9 Left Kidney: 11.6 cm. No evidence of hydronephrosis or mass. Left intrarenal RI: 0.48-0.58 Left renal artery velocity: 196 cm/sec. Left RAR (Renal Artery-Aortic Ratio): 1.6 IMPRESSION: Less than 60% stenosis of the renal arteries bilaterally. CT angiogram or postcontrast MR angiogram would be more sensitive for evaluation of possible renal artery stenosis. Reviewed, Interpreted and Dictated by Hossein Mcelroy MD Transcribed by Randa Mancini Authenticated and [facility]
--- NOTE | 2024-09-27 10:00 | US_ITS ---
FINAL REPORT TECHNIQUE: Ultrasound images of the kidneys and bladder were obtained. CLINICAL HISTORY: R79.89 - Other specified abnormal findings of blood chemi... COMPARISON: None FINDINGS: The right kidney measures 10.1 cm in length. There is a lobular prominence in the mid right kidney that measures 4.4 x 4.1 cm in size. A focal mass is not excluded. It is otherwise normal in echogenicity. There is no hydronephrosis. The left kidney measures 10.6 cm in length. It is normal in echogenicity. There is no hydronephrosis. IMPRESSION: Lobular prominence in the mid right kidney, 4.4 x 4.1 cm in size. A focal mass is not excluded. Recommend renal protocol CT for further evaluation. Reviewed, Interpreted and Dictated by Hossein Mcelroy MD Transcribed by Randa Mancini Authenticated and [facility]
== END 2024-09-27 23:59 | disposition home or self-care (01) ==
LOC: RAD 06:11
PROVIDERS: PCP Internal Medicine Adolescent Medicine; Visit Provider Physician Assistant
DX: I49.3 Ventricular premature depolarization (principal); I70.1 Atherosclerosis of renal artery; R93.421 Abnormal radiologic findings on diagnostic imaging of right kidney; R79.89 Other specified abnormal findings of blood chemistry; I10 Essential (primary) hypertension; R94.31 Abnormal electrocardiogram [ECG] [EKG]; E78.00 Pure hypercholesterolemia, unspecified
CPT/HCPCS: 76770; 78452; 93016; 93017; 93018; 93976; A9502

== ENCOUNTER 2024-10-27 08:30 | Outpatient (CLI) | payer BC, SELFPAY ==
--- NOTE | 2024-10-27 08:45 | CT_ITS ---
FINAL REPORT TECHNIQUE: Pre- and postcontrast images of the abdomen were performed by computed tomography. Coronal and sagittal images were obtained and reviewed. This study was performed with techniques to keep radiation doses as low as reasonably achievable, (ALARA). Individualized dose reduction techniques using automated exposure control or adjustment of mA and/or kV according to the patient's size were employed. CLINICAL HISTORY: Renal Mass Protocol COMPARISON: Ultrasound 09/27/2024 FINDINGS: On noncontrast images, no renal stones identified. No hydronephrosis. On postcontrast images, no concerning abnormality to correspond to ultrasound finding. There are several 1 cm or less cysts in the right kidney. No mass identified in the left kidney. The lung bases are clear. The gallbladder is present. Remaining solid abdominal organs are unremarkable. The GI tract is without acute abnormality. No lymphadenopathy or ascites. No acute osseous abnormality. IMPRESSION: No solid renal mass. Several 1 cm or less right renal cysts. Reviewed, Interpreted and Dictated by Tg Causey MD Transcribed by Brenna Quiroga Authenticated and [facility]
[2024-10-27 08:54] LABS: Blood Urea Nitrogen 11 mg/dl (9-20); Creatinine,Serum 0.80 mg/dl (0.66-1.25); Estimated Glomerular Filt Rate 103 ml/min (>60); GFR (African American) 125 ML/MIN (>60)
[2024-10-27] MEDS: IOPAMIDOL-370 (76%);100ML BOTTLE 75 ML IV (09:31)
[2024-10-27] MEDS: SODIUM CHLORIDE 0.9% 10ML SYR (RAD ONLY) 10 ML IV (09:31)
== END 2024-10-27 23:59 | disposition home or self-care (01) ==
LOC: RAD 08:30
PROVIDERS: PCP Internal Medicine Adolescent Medicine; Visit Provider Physician Assistant
DX: N28.89 Other specified disorders of kidney and ureter (principal); R39.9 Unspecified symptoms and signs involving the genitourinary system; I10 Essential (primary) hypertension; R94.31 Abnormal electrocardiogram [ECG] [EKG]
CPT/HCPCS: 36415; 74170; 82565; 84520; Q9967

== ENCOUNTER 2024-11-13 11:58 | Outpatient (CLI) | payer BC, SELFPAY ==
[2024-11-13 12:01] LABS: Microscopic, Urine URINE MICROSCOPIC (MICROSCOPIC)
[2024-11-13 12:41] LABS: Bilirubin,Urine Negative (Negative); Color,Urine YELLOW (Yellow); Glucose,Urine (UA) Negative (Negative); Ketones,Urine Negative (Negative); Leukocyte Esterase,Urine Negative (Negative); PH,Urine 5.5 (5.0-8.5); Protein,Urine Negative (Negative); Specific Gravity, Urine >= 1.030 (1.005-1.030); Urobilinogen,Urine 0.2 EU/dl (0.2)
[2024-11-13 12:49] LABS: Bacteria,Urine Trace /lpf; WBC,Urine Occasional #/hpf (0-3)
[2024-11-13 13:19] LABS: Hemoglobin A1C 5.6 % (4.0-6.0)
== END 2024-11-13 23:59 | disposition home or self-care (01) ==
LOC: LAB 11:59
PROVIDERS: PCP Internal Medicine Adolescent Medicine; Visit Provider Physician Assistant
DX: I10 Essential (primary) hypertension (principal); R94.31 Abnormal electrocardiogram [ECG] [EKG]; R73.09 Other abnormal glucose
CPT/HCPCS: 36415; 81001; 83036

== ENCOUNTER 2024-12-22 16:42 | Outpatient (CLI) | payer BC, SELFPAY ==
--- OUTSIDE RECORDS SUMMARY | 2024-12-22 16:46 | XMS_ITS | Encounter Summary ---
Author Organization [facility] Address [address] [place] [address] Care Team Providers Care Driller Operator Name Role Phone Jose L Oneal MD Primary Care Provider [phone] Encounter Details Date Type Department Care Team ([facility] Contact Info) Description 11/20/2024 Orders Only [facility] [address] [place] [address] Casi Mendosa Renal cyst (Primary Dx); Vitamin D insufficiency Social History Tobacco Use Types Packs/Day Years Used Date Smoking Tobacco: Never Assessed Sex and Gender Information Value Date Recorded Sex Assigned at Not on file Legal Sex Male 8:30 PM EDT Gender Identity Not on file Sexual Orientation Not on file documented as of this encounter Plan of Treatment Upcoming Encounters Date Type Department Care Team ([facility] Contact Info) Description 12/25/2024 11:00 AM EDT Office Visit [facility] Nephrology, Bone & Mineral Metabolism [address], [address] [place] [address] Micah Matos MD [address] [place] [phone] Scheduled Orders Name Type Priority Associated Diagnoses Orde r Schedule Renal Function Panel, Plasma Lab Routine Renal cyst Expected: 11/20/2024 (Approximate), Expires: 05/23/2026 CBC and Differential Lab Routine Renal cyst Expected: 11/20/2024 (Approximate), Expires: 05/23/2026 Creatinine, Random, Urine Lab Routine Renal cyst Expected: 11/20/2024 (Approximate), Expires: 05/23/2026 Protein, Random, Urine with Creatinine Lab Routine Renal cyst Expected: 11/20/2024 (Approximate), Expires: 05/23/2026 Urinalysis with reflex microscopic (Culture NOT Included) Lab Routine Renal cyst Expected: 11/20/2024 (Approximate), Expires: 05/23/2026 PTH Intact Total Lab Routine Renal cyst Vitamin D insufficiency Expected: 11/20/2024 (Approximate), Expires: 05/23/2026 Vitamin D 25 Hydroxy Lab Routine Renal cyst Vitamin D insufficiency Expected: 11/20/2024 (Approximate), Expires: 05/23/2026 documented as of this encounter Visit Diagnoses Diagnosis Renal cyst- Primary Unspecified congenital cystic kidney disease Vitamin D insufficiency documented in this encounter Care Teams Driller Operator Relationship Specialty Start Date End Date Jose L Oneal MD [address] [place] [address] [place] [id number] PCP - General Internal Medicine 11/20/24 documented as of this encounter
--- OUTSIDE RECORDS SUMMARY | 2024-12-22 16:46 | XMS_ITS | Clinical Summary ---
Author Organization [facility] Address [address] [place] [address] Care Team Providers Care Fern Gatherer Name Role Phone Jose L Oneal MD Primary Care Provider [phone] Allergies Active Allergy Reactions Criticality Noted Date Comments Amoxicillin Unknown - Patient st ates they do not know rxn details Low 12/15/2024 Penicillins Unknown - Patient st ates they do not know rxn details Low 12/15/2024 Medications aspirin 81 MG EC tablet Take 1 tablet by mouth daily. Active metoprolol succinate XL (Toprol-XL) 25 MG 24 hr tablet Take 1 tablet by mouth daily. Do not crush or chew. Active NIFEdipine XL (Procardia XL) 60 MG 24 hr tablet Take 1 tablet by mouth daily. Do not crush, chew, or split. Active rosuvastatin (Crestor) 40 MG tablet Take 1 tablet by mouth daily. Active valsartan (Diovan) 160 MG tablet Take 1 tablet by mouth daily. Active Encounters Date Type Department Care Team Description 11/20/2024 Orders Only [facility] [address] [place] [phone] Casi Mendosa Renal cyst (Primary Dx); Vitamin D insufficiency from Last 3 Months Social History Tobacco Use Types Packs/Day Years Used Date Smoking Tobacco: Never Tobacco Cessation:Counseling Given: Not Answered Alcohol Use Standard Drinks/Week Comments Never 0 (1 standard drink = 0.6 oz pur e alcohol) Sex and Gender Information Value Date Recorded Sex Assigned at Not on file Legal Sex Male 8:30 PM EDT Gender Identity Not on file Sexual Orientation Not on file Plan of Treatment Upcoming Encounters Date Type Department Care Team ([facility] st Contact Info) Description 12/25/2024 11:00 AM EDT Office Visit [facility] Nephrology, Bone & Mineral Metabolism [address], [address] [place] [address] Micah Matos MD [address] [place] [address] Health Maintenance Due Date Last Done Comments [facility]-Depression Screening 1975 [facility]-HIV Screening 1975 [facility]-Hepatitis C Screening 1975 [facility]-/Child/Adol SDOH Screenings 1975 [facility]- SDOH Screenings 12/10/1993 [facility]-Adult SDOH Screenings 12/10/1993 [facility]-DTaP,Tdap,and Td Vaccine s (1 - Tdap) 12/10/1994 [facility]-Hepatitis B Vaccines (1 of 3 - 19+ 3-dose series) 12/10/1994 CT Colonography 12/10/2020 Colonoscopy 12/10/2020 FIT-DNA 12/10/2020 FIT 12/10/2020 FOBT 12/10/2020 Sigmoidoscopy 12/10/2020 [facility]-Colorectal Cancer Screening 12/10/2020 [id number] Vaccine (1 - 20 24-25 season) 2024 [facility]-Influenza Vaccine (#1) 2024 [facility]-Zoster Vaccines (1 of 2) 12/10/2025 HPV Vaccines Aged Out No longer eligi ble based on patient's age to complete this topic [facility]-HIB Vaccines Aged Out No longer e ligible based on patient's age to complete this topic [facility]-Hepatitis A Vaccines Aged Out No longer eligible based on patient's age to complete this topic [facility]-IPV Vaccines Aged Out No longer e ligible based on patient's age to complete this topic [facility]-Pneumococcal Vaccine: Pediatrics (0 to 5 Years) and At-Risk Patients (6 to 49 Years) Aged Out No long er eligible based on patient's age to complete this topic [facility]-Rotavirus Vaccines Aged Out No lo nger eligible based on patient's age to complete this topic Insurance ANTH Care Teams Fern Gatherer Relationship Specialty Start Date End Date Jose L Oneal MD [address] [place] [address] [place] [address] PCP - General Internal Medicine 11/20/24
[2024-12-22 16:51] LABS: Microscopic, Urine URINE MICROSCOPIC (MICROSCOPIC)
[2024-12-22 17:14] LABS: Bilirubin,Urine Negative (Negative); Color,Urine YELLOW (Yellow); Glucose,Urine (UA) Negative (Negative); Ketones,Urine Negative (Negative); Leukocyte Esterase,Urine Negative (Negative); PH,Urine 6.0 (5.0-8.5); Protein,Urine Negative (Negative); Specific Gravity, Urine 1.025 (1.005-1.030); Urobilinogen,Urine 4.0 EU/dl (0.2)
[2024-12-22 17:31] LABS: RBC,Urine Occasional #/hpf (0-3); Squamous Epithelial Cell,Urine Occasional #/hpf (0-5); WBC,Urine Occasional #/hpf (0-3)
[2024-12-22 17:32] LABS: Hematocrit 44.8 % (42.0-52.0); Hemoglobin 15.1 g/dL (14.1-18.0); Immature Granulocytes % 0.2 %; Mean Corpuscular HGB Conc 33.7 g/dL (31.8-35.4); Mean Corpuscular Hemoglobin 28.9 pg (27.0-31.2); Mean Corpuscular Volume 85.7 fl (80-94); Nucleated Red Blood Cells % 0 %; Platelet Count 279 K/mm3 (142-424); Red Blood Count 5.23 M/mm3 (4.60-6.20); Red Cell Distribution Width-SD 40.6 fL; White Blood Count 6.4 K/mm3 (4.8-10.8)
[2024-12-22 17:43] LABS: Albumin Level 4.5 g/dl (3.5-5.0); Anion Gap 13.0 mEq/L (5-15); Blood Urea Nitrogen 11 mg/dl (9-20); Calcium 9.7 mg/dl (8.4-10.2); Carbon Dioxide 27 mmol/L (22.0-30.0); Chloride 101 mmol/L (98-107); Creatinine,Serum 0.90 mg/dl (0.66-1.25); Estimated Glomerular Filt Rate 90 ml/min (>60); GFR (African American) 109 ML/MIN (>60); Glucose 120 mg/dl (74-100); Phosphorous 4.1 mg/dl (2.5-4.5); Potassium 4.0 mmoL/L (3.5-5.1); Sodium 137 mmol/L (136-145)
[2024-12-22 18:01] LABS: 25-OH Vitamin D, Total 47.3 ng/mL (30-100)
== END 2024-12-22 23:59 | disposition home or self-care (01) ==
LOC: LAB 16:44
PROVIDERS: PCP Internal Medicine Adolescent Medicine; Visit Provider Student in an Organized Health Care Education/Training Program
DX: N28.1 Cyst of kidney, acquired (principal); E55.9 Vitamin D deficiency, unspecified
CPT/HCPCS: 36415; 80069; 81001; 82306; 82570; 83970; 84156; 85025

== ENCOUNTER 2025-03-14 16:28 | Outpatient (CLI) | payer BC, SELFPAY ==
[2025-03-14 16:39] LABS: Microscopic, Urine URINE MICROSCOPIC (MICROSCOPIC)
[2025-03-14 16:58] LABS: Hematocrit 50.0 % (42.0-52.0); Hemoglobin 16.8 g/dL (14.1-18.0); Mean Corpuscular HGB Conc 33.6 g/dL (31.8-35.4); Mean Corpuscular Hemoglobin 28.9 pg (27.0-31.2); Mean Corpuscular Volume 86.1 fl (80-94); Nucleated Red Blood Cells % 0 %; Platelet Count 332 K/mm3 (142-424); Red Blood Count 5.81 M/mm3 (4.60-6.20); Red Cell Distribution Width-SD 39.3 fL; White Blood Count 6.7 K/mm3 (4.8-10.8)
--- OUTSIDE RECORDS SUMMARY | 2025-03-14 17:18 | XMS_ITS ---
Author Organization Unknown ENCOUNTERS Encounter Performer Location Date Diagnosis Diagnosis Status [facility] [place] [address] [place] [address] [id number] [facility] [place] [address] [place] [address] [id number] Pre Admit [facility] [place] [place] [address] [id number] Emergency [facility] [address] [place] [address] [id number] [facility] Mary [facility] [address] [place] [place] [id number] [facility] *Note: Encounters from your own facility or health system may be excluded. Allergies, Adverse Reactions, Alerts Allergen Type Severity Identification Date amoxicillin drug allergy 0 [id number] Penicillins drug allergy 0 [id number] Medications Name Date Quantity Days Supplied [facility] Number
[2025-03-14 17:50] LABS: Albumin Level 5.3 g/dl (3.5-5.0); Anion Gap 13.8 mEq/L (5-15); Blood Urea Nitrogen 21 mg/dl (9-20); Calcium 10.4 mg/dl (8.4-10.2); Carbon Dioxide 29 mmol/L (22.0-30.0); Chloride 99 mmol/L (98-107); Creatinine,Serum 1.00 mg/dl (0.66-1.25); Estimated Glomerular Filt Rate 79 ml/min (>60); GFR (African American) 96 ML/MIN (>60); Glucose 89 mg/dl (74-100); Phosphorous 4.0 mg/dl (2.5-4.5); Potassium 3.8 mmoL/L (3.5-5.1); Sodium 138 mmol/L (136-145)
[2025-03-14 18:07] LABS: 25-OH Vitamin D, Total 34.5 ng/mL (30-100)
[2025-03-14 19:02] LABS: Bilirubin,Urine Negative (Negative); Color,Urine YELLOW (Yellow); Glucose,Urine (UA) Negative (Negative); Ketones,Urine Negative (Negative); Leukocyte Esterase,Urine Negative (Negative); PH,Urine 5.5 (5.0-8.5); Protein,Urine Negative (Negative); Urobilinogen,Urine 0.2 EU/dl (0.2)
[2025-03-14 19:05] LABS: Specific Gravity, Urine 1.032 (1.005-1.030)
[2025-03-14 19:50] LABS: Calcium Oxalate Crystals,Urine Trace /lpf
== END 2025-03-14 23:59 | disposition home or self-care (01) ==
LOC: LAB 16:30
PROVIDERS: PCP Internal Medicine Adolescent Medicine; Visit Provider Student in an Organized Health Care Education/Training Program
DX: I10 Essential (primary) hypertension (principal)
CPT/HCPCS: 36415; 80069; 81001; 82043; 82306; 82570; 84156; 85027